=== PATIENT | female | born 1970 | race Caucasian/White ===

== ENCOUNTER 2019-08-12 06:26 | Emergency (ER) | payer BC, OTHER ==
[2019-08-12 06:49] VITALS: BP 151/95; PULSE 71; RESP 18; TEMP 98.1
--- NOTE | 2019-08-12 07:12 | ED ---
General Adult HPI - General Source: patient, RN notes reviewed, old records reviewed Mode of arrival: ambulatory Limitations: no limitations <Blanca Paige - Last Filed: 08/12/19 07:08> <Carolina Canchola - Last Filed: 08/15/19 07:46> - General Chief complaint: Wound/Laceration Stated complaint: Head Injury/IHS Time Seen by Provider: 08/12/19 06:53 - History of Present Illness Initial comments: Patient is a pleasant 49-year-old female who presents emergency department today with a scalp laceration over hitting her head on the corner of a cabinet. She reports that this happened today at work. Patient reports no loss of consciousness. She is on blood thinners. She denies any headache or neck pain. Patient reports that she has a 2 cm laceration that has already stopped bleeding at this time. She was sent in for further evaluation prior work. Patient states that she's had no dizziness, visual changes, peripheral paresthesias. (Blanca Paige) - Related Data Allergies Allergy/AdvReac Type Severity Reaction Status Date / Time Penicillins AdvReac Mild Unknown Verified 08/12/19 06:50 Review of Systems ROS Other: All systems not noted in ROS Statement are negative. <Blanca Paige - Last Filed: 08/12/19 07:08> ROS Other: All systems not noted in ROS Statement are negative. <Carolina Canchola - Last Filed: 08/15/19 07:46> ROS Statement: Those systems with pertinent positive or pertinent negative responses have been documented in the HPI. Past Medical History History of Any Multi-Drug Resistant Organisms: None Reported Past Surgical History: Tubal Ligation Past Psychological History: No Psychological Hx Reported Smoking Status: Current every day smoker Past Alcohol Use History: Occasional Past Drug Use History: None Reported <Blanca Paige - Last Filed: 08/12/19 07:08> General Exam Limitations: no limitations General appearance: alert, in no apparent distress Head exam: Present: atraumatic, normocephalic, normal inspection, other (Patient has a 2 cm laceration over the top of the scalp. The laceration is well approximated this time, bleeding controlled.) Eye exam: Present: normal appearance, PERRL, EOMI. Absent: scleral icterus, conjunctival injection, periorbital swelling ENT exam: Present: normal exam, mucous membranes moist Neck exam: Present: normal inspection. Absent: tenderness, meningismus, lymphadenopathy Respiratory exam: Present: normal lung sounds bilaterally Cardiovascular Exam: Present: regular rate, normal rhythm, normal heart sounds. Absent: systolic murmur, diastolic murmur, rubs, gallop, clicks GI/Abdominal exam: Present: soft, normal bowel sounds. Absent: distended, tenderness, guarding, rebound, rigid Back exam: Present: normal inspection Neurological exam: Present: alert, oriented X3, CN II-XII intact, normal gait Expanded Patient oriented to: Present: person, place, time Speech: Present: fluid speech Cranial nerves: EOM's Intact: Normal Cerebellar function: Finger to Nose: Normal Upper motor neuron: Pronator Drift: Normal Sensory exam: Upper Extremity Light Touch: Normal, Lower Extremity Light Touch: Normal Motor strength exam: RUE: 5, LUE: 5, RLE: 5, LLE: 5 Eye Response: (4) open spontaneously Motor Response: (6) obeys commands Verbal Response: (5) oriented Surendra Total: 15 Psychiatric exam: Present: normal affect, normal mood Skin exam: Present: warm <Blanca Paige - Last Filed: 08/12/19 07:08> Course Vital Signs 08/12/19 08/12/19 06:44 07:26 Temperature 98.1 F 98.1 F Pulse Rate 71 71 Respiratory 18 18 Rate Blood Pressure 151/95 151/95 O2 Sat by Pulse 100 100 Oximetry Procedures - Laceration Laceration #1 Size (cm): 2 Description: linear Depth: simple, single layer Pre-repair: wound explored, irrigated extensively Type of Sutures: other ([place]) Number of Sutures: 2 Technique: simple, interrupted Patient Tolerated Procedure: well, no complications <Blanca Paige - Last Filed: 08/12/19 07:08> Medical Decision Making <Blanca Paige - Last Filed: 08/12/19 07:08> <Carolina Canchola - Last Filed: 08/15/19 07:46> - Medical Decision Making This patient's a pleasant 49-year-old female presented today for a laceration over the top of the skull. She hit her head while at work. Patient's O2 sat meter laceration. Wound was already stopped bleeding at this time. Patient's wound was cleaned, and closed with 2 patrick. She has no neurological deficits denies any head injury. She is not on blood thinners and appears well. She denies headache. Discussed risk and benefit of CT Patient agrees to forego this at this time. Discussed Patient be monitored with a head injury. Discussed staple care. All questions were answered and return parameters were discussed. (Blanca Paige) I was available for consultation in the emergency department. The history and physical exam were done by the midlevel provider. I was consulted for this patients care. I reviewed the case with the midlevel provider and based on their presentation of the patient, I agree with the assessment, medical decision making and plan of care as documented. Chart was dictated using Me[employer] dictation software. Attempts were made to correct any dictation errors however some typographical errors may persist. (Carolina Canchola) Disposition Is patient prescribed a controlled substance at d/c from ED?: No Time of Disposition: 07:11 <Blanca Paige - Last Filed: 08/12/19 07:08> <Carolina Canchola - Last Filed: 08/15/19 07:46> Clinical Impression: Scalp laceration, Minor head injury without loss of consciousness Disposition: HOME SELF-CARE Condition: Good Instructions (If sedation given, give patient instructions): Head Injury (ED), Staple Care (ED) Additional Instructions: Please return to the emergency room in 7 days to have patrick removed. Please leave wound covered for the first 24-48 hours and then leave open to air after that time. Please use clean soap and water to clean the suture area to prevent scabbing over the top of your patrick. Please watch for any signs of infection which may include but not limited to increased pain, swelling, redness, fever or chills. Please return to the emergency room if any signs of infection do occur. Please return to the emergency room for any other concerns or complications. Referrals: None,Stated [Primary Care Provider] - 1-2 days
== END 2019-08-12 07:25 | disposition home or self-care (01) ==
LOC: EC 06:26
DX: S01.01XA Laceration without foreign body of scalp, initial encounter (principal); F17.200 Nicotine dependence, unspecified, uncomplicated; Z88.0 Allergy status to penicillin; W22.03XA Walked into furniture, initial encounter; Y92.69 Other specified industrial and construction area as the place of occurrence of the external cause; Y99.0 Civilian activity done for income or pay
CPT/HCPCS: 12001; 99283

== ENCOUNTER → 2020-08-09 | Outpatient (CLI) | payer OTHER | END | disposition home or self-care (01) | LOC: LABPAT 08:03 | PROVIDERS: ATTEND Orthopaedic Surgery | DX: Z01.812 Encounter for preprocedural laboratory examination (principal) | CPT/HCPCS: 87070 ==

== ENCOUNTER → 2020-08-14 | Outpatient (CLI) | payer OTHER ==
[2020-08-14 09:40] LABS: Appearance,Urine Cloudy (Clear); Bilirubin,Urine Negative (Negative); Blood,Urine Small (Negative); Color,Urine Yellow; Glucose,Urine (UA) Negative (Negative); Ketones,Urine Negative (Negative); Leukocyte Esterase,Urine Negative (Negative); Mucus,Urine Few /hpf; Nitrite,Urine Negative (Negative); Protein,Urine Trace (Negative); RBC,Urine 4 /hpf (0-5); Specific Gravity,Urine 1.022 (1.001-1.035); Squamous Epithelial Cell,Urine 8 /hpf (0-4); Urobilinogen,Urine <2.0 mg/dL (<2.0); WBC,Urine 2 /hpf (0-5)
== END | disposition home or self-care (01) ==
LOC: LABPAT 08:27
PROVIDERS: ATTEND Orthopaedic Surgery
DX: Z01.818 Encounter for other preprocedural examination (principal); M16.11 Unilateral primary osteoarthritis, right hip
CPT/HCPCS: 36415; 81001; 85730; 86850; 86900; 86901

== ENCOUNTER 2020-08-20 13:01 | Day surgery (SDC) | payer OTHER ==
[2020-08-13 10:51] VITALS: BMI 36.6
[2020-08-20] MEDS: LACTATED RINGERS 1,000 ML IV SCH ×3 (13:00→13:50)
[2020-08-20] MEDS: LIDOCAINE 1% (10MG/ML) FOR IV START INTRADERMA PRN ×2 (13:00→13:50)
[~2020-08-20 13:01] MED LIST: ACETAMINOPHEN TAB 500 MG TAB PO PRN; DEXAMETHASONE SOD PHOSPHATE 4 MG/ML 1 ML VIAL IV ONE; GABAPENTIN 300 MG CAP PO PRN; HYDROmorphone 0.2 MG/1 ML SYRINGE IVP PRN; HYDROmorphone 0.5 MG/0.5 ML SYRINGE IVP PRN; HYDROmorphone 1 MG/ML 1 ML SYRINGE IVP PRN; MELOXICAM 7.5 MG TAB PO PRN; MIDAZOLAM 2 MG/2 ML VIAL IV PRN; NALOXONE 0.4 MG/ML 1 ML VIAL IV PRN; ONDANSETRON 4 MG/2 ML VIAL IVP ONE; ONDANSETRON 4 MG/2 ML VIAL IVP PRN; ROPIVACAINE 246.25 MG, EPINEPHrine 0.5 MG, KETOROLAC 30 MG, cloNIDine HCL/PF 80 MCG, WA... MISCELLANE PRN; TRANEXAMIC ACID 1,000 MG in SODIUM CHLORIDE 0.9% 100 ML IVPB PRN
[2020-08-20] MEDS ORDERED: NEOSTIGMINE 1 MG/ML 10 ML VIAL ONE (14:45)
[2020-08-20] MEDS ORDERED: SUCCINYLCHOLINE CHLORIDE 100 MG/5 ML SYR IV ONE (14:45)
[2020-08-20] MEDS ORDERED: HYDROmorphone (PF) 1 MG/ML ONE (14:45)
[2020-08-20] MEDS ORDERED: TRANEXAMIC ACID 1,000 MG/10 ML VIAL ONE (14:45)
[2020-08-20] MEDS ORDERED: ROCURONIUM 10 MG/ML (5 ML VIAL) IV ONE (14:45)
[2020-08-20] MEDS ORDERED: HEPARIN SODIUM,PORCINE 10,000 UNIT/ML 1 ML VIAL ONE (14:45)
[2020-08-20] MEDS ORDERED: GLYCOPYRROLATE 0.2 MG/ML 2 ML VIAL ONE (14:45)
[2020-08-20] MEDS ORDERED: fentaNYL (PF) 50 MCG/ML 2 ML AMP ONE (14:45)
[2020-08-20] MEDS ORDERED: LIDOCAINE 1% INJ 10MG/ML (20 ML MDV) ONE (14:45)
[2020-08-20] MEDS ORDERED: MIDAZOLAM 2 MG/2 ML VIAL ONE (14:45)
[2020-08-20] MEDS ORDERED: SODIUM CHLORIDE 0.9% 100 ML BAG ONE (14:45)
[2020-08-20] MEDS ORDERED: PROPOFOL 10 MG/ML 20 ML VIAL IV ONE (14:45)
[2020-08-20] MEDS ORDERED: SODIUM CHLORIDE 0.9% IRRIG 1,000 ML BTL IRRIGATION ONE (14:45)
[2020-08-20] MEDS ORDERED: ceFAZolin 3,000 MG in SODIUM CHLORIDE 0.9% IRRIGATIO 3,000 ML IRRIGATION ONE (15:18)
--- NOTE | 2020-08-20 16:11 | P.OP ---
Date of Procedure: 08/20/20 Preoperative Diagnosis: Severe osteoarthritis right hip Postoperative Diagnosis: Severe osteoarthritis right hip Procedure(s) Performed: Right total hip arthroplasty with a direct anterior approach Implants: [employer] Polarstem standard size 1 [employer] R3, 3 hole hemispherical acetabular shell, 48 mm [employer] Reflection 6.5 mm cancellus screw, 20 mm 2 [employer] R3, XLPE 20 acetabular liner [employer] Oxinium femoral head 32 mm, -3 All components were press-fit. The articulation is Oxinium on polyethylene. Anesthesia: GETA Surgeon: Shaji Cummings Messenger Office #1: Bianca Nowak Estimated Blood Loss (ml): 200 (67 mL returned with Cell Saver) Pathology: other (Femoral head) Condition: stable Disposition: PACU Indications for Procedure: After failure of conservative treatment we discussed the surgical and nonsurgical treatment options at length. Patient wishes to proceed with a total hip arthroplasty with a direct anterior approach. Complications specific to this procedure were discussed at length, including but not limited to infection, leg length discrepancy, dislocation, nerve injury, and fracture. Covid-19 was also discussed at length with the patient, and they are aware of the current policies and procedures. The patient was given the option of delaying surgery, but they elect to proceed knowing these risks. Patient is aware of all these complications and informed consent was obtained Operative Findings: The operative findings are consistent with severe osteoarthritis of the right hip Description of Procedure: Patient was seen and evaluated in the preoperative area and the consent was reviewed. The operative site was marked with a skin marker. The patient was then brought to the operating room and given preoperative antibiotics intravenously. 1 g of Tranexamic acid was also given intravenously. A general anesthetic was administered by the anesthesia department. The patient was then placed on the Newell table with the bony prominences well-padded. The hip area was then prepped with a ChloraPrep solution and draped in the usual sterile fashion. A universal timeout was then performed, which confirmed the patient's name, surgical site, ALLERGIES, and procedure being performed on the consent. Next the incision site was located at 1 cm distal and 1 cm lateral to the anterior superior iliac spine. The skin and subcutaneous tissues were sharply incised. Incision was carefully dissected down to the fascia overlying the tensor fascia faina muscle. This fascia was then incised in line with the incision. Care was taken to stay laterally in order to avoid injuring the lateral femoral cutaneous nerve. Next, using blunt finger dissection, the tensor fascia faina muscle was dissected off its investing fascia. The muscle was then carefully retracted laterally with a cobra retractor over the lateral neck of the femur. Next, the circumflex vessels were identified and cauterized using the AquaMantis device. The anterior hip capsule was then exposed. The capsule was then opened and an inverted T fashion. Cobra retractors were then placed intracapsularly. The retractors were maintained intracapsular throughout the procedure. The proximal femur was then visualized. A small amount of traction was placed on the leg. The femoral neck was then osteotomized appropriate level above the lesser trochanter. A small wedge of bone was then removed from the remaining femoral head. Next, using a corkscrew the femoral head was removed from the acetabulum. On gross visual inspection, the femoral head had complete loss of articular cartilage and multiple periarticular osteophytes. The femoral head was then measured. Attention was then turned to the acetabulum. The acetabulum was exposed and any remaining labrum was excised. Sequential reaming of the acetabulum was performed using fluoroscopic guidance until there was a good bed of bleeding cancellus bone. When the appropriate size was reached, a trial was then placed. The position and fit of the trial was checked with fluoroscopy. The trial was then removed. Then, using fluoroscopic guidance, the final implant was impacted at 20 of anteversion and 40 of abduction, and fully seated in the acetabulum. 2 screws were then placed in the acetabulum. Again fluoroscopy was used to check position of the screws. Next, the liner was then impacted, with a 20 elevated liner located in the anterior superior quadrant. Component locking was confirmed. Attention was then directed to the femur. With the aid of the Newell table, the femur was externally rotated to approximately 130, extended, and adducted under the opposite leg. A side hook was then placed under the proximal femur, and the side hook elevator was used to elevate the proximal femur while releasing the capsule. Retractors were then placed. A capsular release was performed, as well as a release of the conjoined tendon, which afforded excellent visualization of the proximal femur. Next, a box osteotome was used to lateralize the proximal femur. A handle maker was then used to locate the femoral canal. Sequential broaching was then performed with appropriate size which afforded excellent fixation in the proximal femur. A trial was then placed with appropriate head and neck, and the hip was gently reduced with the aid of the Newell table. Fluoroscopy was then used to check position of the components, as well as to ensure equal leg lengths. The hip was then gently dislocated and the trials were then removed. Final implants were then impacted and the hip was again reduced. Final fluoroscopic x-rays confirmed that the components were in anatomic position, as well as equal leg lengths. The hip was also taken through range of motion, and found to be stable. The hip was then copiously irrigated with antibiotic solution with pulsatile lavage. The hip was then irrigated with Irrisept solution. The soft tissues were then injected with a ropivacaine solution, which consisted of 246.25 mg of ropivacaine, 0.5 mg of epinephrine, 30 mg of Toradol, 80 g of clonidine, and 48.45 mL of sterile water, for a total of 100 mL of fluid injected. A second dose of 1 g of Tranexamic acid was also given intravenously. Any blood collected by Cell Saver was then returned to the patient at this time. The fascia was then closed with 2-0 strata fix suture. The subcutaneous tissue was closed with 3-0 Vicryl. The subcuticular tissue was closed with 3-0 strata fix suture. The skin was then closed with Exofin skin glue. After the glue and dried, and Optifoam silver impregnated dressing was applied. The patient was then transferred to the recovery room in stable condition. The radiology assistant TEA Patton was required due to the complexity of surgery, and the need for skilled surgical oncologist for positioning, draping, exposure, retraction, and closure of the wound.
[2020-08-20] MEDS ORDERED: LACTATED RINGERS 1,000 ML IV ONE (16:23)
[2020-08-20] MEDS ORDERED: HYDROcodone/APAP 7.5-325MG 1 EACH TAB PO PRN ×2 (16:37)
[2020-08-20 16:48] VITALS: RESP 16
--- NOTE | 2020-08-20 17:09 | XR ---
EXAMINATION TYPE: XR Hip Limited RT DATE OF EXAM: 08/20/2020 COMPARISON: NONE HISTORY: Postop TECHNIQUE: Single view FINDINGS: There is right hip prosthesis. Components are in anatomic position. Sacroiliac joint is int act. IMPRESSION: Negative right hip exam.
[2020-08-20] MEDS: HYDROmorphone 0.5 MG/0.5 ML SYRINGE IVP PRN ×2 (17:20→17:25)
[2020-08-20] MEDS ORDERED: KETOROLAC 15 MG/ML 1 ML VIAL IVP ONE (17:24)
--- NOTE | 2020-08-20 17:49 | XR ---
Fluoroscopy HISTORY: Anterior hip replacement 52 seconds fluoroscopy time supplied to the referring clinician. 2 intraoperative C-arm images docum ent the procedure. See dictated report from orthopedic surgery.
[2020-08-20] MEDS: SODIUM CHLORIDE 0.9% 1,000 ML IV SCH (18:00)
[2020-08-20] MEDS: ASPIRIN 325 MG TAB PO SCH (21:28)
[2020-08-21] MEDS: SODIUM CHLORIDE 0.9% 1,000 ML IV SCH ×2 (04:37→07:28)
[2020-08-21] MEDS: LACTATED RINGERS 1,000 ML IV SCH (05:51)
[2020-08-21] MEDS: ASPIRIN 325 MG TAB PO SCH (07:34)
[2020-08-21 07:56] VITALS: BP 99/61; PULSE 65; TEMP 98.2
--- NOTE | 2020-08-21 08:50 | P.DS ---
Providers Expected date of discharge: 08/21/20 Attending physician: Shaji Cummings Primary care physician: Svetlana Meadows - Discharge Diagnosis(es) (1) Osteoarthritis of right hip Current Visit: Yes Status: Acute (2) Status post total hip replacement, right Current Visit: Yes Status: Acute Hospital Course: This is a 50-year-old female with known history of degenerative arthritis of the right hip. The patient presented for evaluation as an outpatient. After discussion and consideration patient elects to proceed with total hip arthroplasty. The patient is seen preoperatively by Dr. Cummings and medically cleared for surgery by their primary care physician. Patient is admitted to [facility] on 08/20/2020 for total hip arthroplasty. The procedure is performed without complication or sequelae. The patient is doing well postoperatively. Labs and vital signs are stable on day of discharge. On day of discharge patient's hip incision is healing well. There is minimal erythema. There is no drainage noted at this time. There is minimal soft tissue swelling to the hip and thigh. Patient has full foot and ankle motion without difficulty or pain. Calf is soft and nontender to palpation. Neurovascular status to the right lower extremity is intact. Patient is discha rged home in good condition. Opioid start talking form is reviewed and signed. Please see med rec for accurate list of home medications. Plan - Discharge Summary Discharge Rx Participant: Yes New Discharge Prescriptions: New Gabapentin 300 mg PO BID 5 Days #10 cap HYDROcodone/APAP 7.5-325MG [[place] 7.5-325] 1 - 2 tab PO Q6H PRN #32 tab PRN Reason: Pain Aspirin 325 mg PO BID #60 tab Celecoxib [CeleBREX] 200 mg PO DAILY 5 Days #5 capsule Sennosides [Senokot] 2 tab PO DAILY PRN #60 tablet PRN Reason: Constipation Ondansetron Odt [Zofran Odt] 1 tab PO Q8HR PRN #10 tab PRN Reason: Nausea No Action Cholecalciferol [Vitamin D3 (25 Mcg = 1000 Iu)] 25 mcg PO DAILY Acetaminophen [Tylenol] 325 mg PO Q4H PRN PRN Reason: Pain Discharge Medication List Acetaminophen [Tylenol] 325 mg PO Q4H PRN 08/13/20 [History] Cholecalciferol [Vitamin D3 (25 Mcg = 1000 Iu)] 25 mcg PO DAILY 08/13/20 [History] Aspirin 325 mg PO BID #60 tab 08/21/20 [Rx] Celecoxib [CeleBREX] 200 mg PO DAILY 5 Days #5 capsule 08/21/20 [Rx] Gabapentin 300 mg PO BID 5 Days #10 cap 08/21/20 [Rx] HYDROcodone/APAP 7.5-325MG [[place] 7.5-325] 1 - 2 tab PO Q6H PRN #32 tab 08/21/20 [Rx] Ondansetron Odt [Zofran Odt] 1 tab PO Q8HR PRN #10 tab 08/21/20 [Rx] Sennosides [Senokot] 2 tab PO DAILY PRN #60 tablet 08/21/20 [Rx] Follow up Appointment(s)/Referral(s): [facility], [NON-STAFF] - ([facility] will call you to set up your first visit. Your first visit will be on 08/21/20.) Svetlana Meadows MD [Primary Care Provider] - 08/27/20 3:00 pm Shaji Cummings DO [Doctor of Osteopathic Medicine] - 09/03/20 2:00 pm () Patient Instructions/Handouts: Anterior Hip Replacement (DC) Activity/Diet/Wound Care/Special Instructions: Weightbearing as tolerated with walker Leave dressing intact. Dressing may be removed by home care nurse in 10 days. May shower with dressing on. Please take aspirin 325 mg twice daily for 30 days to prevent blood clots. Please wear compression stockings during the day until follow-up appointment to help prevent blood clots. May remove at night. Follow-up with [facility] in 2 weeks, please call with any questions or concerns [phone] Discharge Disposition: HOME WITH HOME HEALTH SERVICES
[2020-08-21 09:16] LABS: Basophils # (A) 0.01 X 10*3/uL (0.00-0.10); Basophils % (A) 0.1 %; Eosinophils # (A) 0 X 10*3/uL (0.04-0.35); Eosinophils % (A) 0 %; HCT 31.6 % (37.2-46.3); HGB 10.2 g/dL (12.0-15.0); Lymphocytes # (A) 1.78 X 10*3/uL (0.90-5.00); Lymphocytes % (A) 13.3 %; MCH 29.1 pg (27.0-32.0); MCHC 32.3 g/dL (32.0-37.0); MCV 90.3 fL (80.0-97.0); Mean Platelet Volume 10.3 fL (9.5-12.2); Monocytes # (A) 0.94 X 10*3/uL (0.20-1.00); Neutrophils # (A) 10.62 X 10*3/uL (1.80-7.70); Neutrophils % (A) 79.2 %; Platelet Count 293 X 10*3/uL (140-440); RDW 12.8 % (11.5-14.5)
== END 2020-08-21 12:55 | disposition home health service (06) ==
LOC: OR 13:01 → 4SSUR 16:28 → OR 08-21 12:55
PROVIDERS: ATTEND Orthopaedic Surgery
DX: M16.11 Unilateral primary osteoarthritis, right hip (principal); Z97.3 Presence of spectacles and contact lenses; Z98.51 Tubal ligation status; J45.909 Unspecified asthma, uncomplicated; Z91.048 Other nonmedicinal substance allergy status; Z87.891 Personal history of nicotine dependence; Z97.2 Presence of dental prosthetic device (complete) (partial); Z83.3 Family history of diabetes mellitus; Z82.49 Family history of ischemic heart disease and other diseases of the circulatory system; Z79.899 Other long term (current) drug therapy
CPT/HCPCS: 73501; 81025; 85025; 86850; 86891; 86900; 86901; 88300

== ENCOUNTER → 2021-04-30 | Outpatient (CLI) | payer OTHER ==
--- NOTE | 2021-04-30 13:47 | US ---
EXAMINATION TYPE: US venous doppler duplex LE DATE OF EXAM: 04/30/2021 1:00 PM COMPARISON: NONE CLINICAL HISTORY: I83.893 VARICOSE VEINS ELLIE LEGS WITH EDEMA. Bilateral leg swelling SIDE PERFORMED: Bilateral TECHNIQUE: The lower extremity deep venous system is examined utilizing real time linear array sonog aaliyah with graded compression, doppler sonography and color-flow sonography. VESSELS IMAGED: Common Femoral Vein Deep Femoral Vein Greater Saphenous Vein * Femoral Vein Popliteal Vein Small Saphenous Vein * Proximal Calf Veins (* superficial vessels) Right Leg: Appears negative for DVT Left Leg: Appears negative for DVT Grayscale, color doppler, spectral doppler imaging performed of the deep veins of the bilateral lower extremities. There is normal flow, compressibility, vascular waveforms. IMPRESSION: No ultrasound evidence for acute DVT in either lower extremity.
--- NOTE | 2021-05-02 11:32 | MM ---
Reason for exam: screening (asymptomatic). Last mammogram was performed 5 years and 5 months ago. History: Patient is postmenopausal and is nulliparous. Family history of breast cancer in paternal aunt and breast cancer in maternal grandmother. Physical Findings: A clinical breast exam by your physician is recommended on an annual basis and results should be correlated with mammographic findings. MG Screening Mammo w CAD Bilateral CC and MLO view(s) were taken. Prior study comparison: December 13, 2015, bilateral MG screening mammo w CAD. February 28, 2013, bilateral digital screening mammo w/CAD. There are scattered fibroglandular densities. No significant changes when compared with prior studies. ASSESSMENT: Negative, BI-RAD 1 RECOMMENDATION: Routine screening mammogram of both breasts in 1 year.
== END | disposition home or self-care (01) ==
LOC: RADUSWWP 12:15
PROVIDERS: ATTEND Family Medicine
DX: Z12.31 Encounter for screening mammogram for malignant neoplasm of breast (principal); I83.893 Varicose veins of bilateral lower extremities with other complications
CPT/HCPCS: 77067; 93922; 93970

== ENCOUNTER → 2022-05-06 | Outpatient (CLI) | payer OTHER ==
[2022-05-06 08:37] VITALS: BP 121/77; PULSE 76; RESP 17; TEMP 97.5
--- NOTE | 2022-05-06 09:22 | P.HPOB ---
History of Present Illness H&P Date: 05/06/22 Chief Complaint: The patient is here for her routine gynecologic exam. This is a 52-year-old with an LMP of 2019. The patient is here to establish with this office. It is been about one half years since her last pelvic exam. She has been experiencing some hot flashes, but they are tolerable. She has used Black cohosh which seems to help with hot flash symptoms. She is otherwise without gynecologic complaints and denies any postmenopausal bleeding. Review of Systems The patient's weight has been stable over the last year. She did lose about 60 pounds around the time of her divorce in 2000. She denies respiratory, cardiac, or G.I. problems. Past Medical History Past Medical History: Osteoarthritis (OA) Additional Past Medical History / Comment(s): She has had hip and knee problems and has had replacement surgery for these. 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 History of Any Multi-Drug Resistant Organisms: None Reported Past Surgical History: Orthopedic Surgery Additional Past Surgical History / Comment(s): R HIP replacement 2020, R KNEE replacement 2021. Unilateral salpingectomy for ectopic . Past Anesthesia/Blood Transfusion Reactions: No Reported Reaction Past Psychological History: No Psychological Hx Reported (She denies current depression.) Smoking Status: Former smoker Past Alcohol Use History: Rare (1 or 2 per year) Additional Past Alcohol Use History / Comment(s): Quit smoking in July 2020. Past Drug Use History: None Reported Additional History: She is and has been with her boyfriend since 2012. They live together. 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 - Past Family History Mother Family Medical History: Hypertension Additional Family Medical History / Comment(s): Maternal grandmother had breast cancer. Father Family Medical History: Diabetes Mellitus, Hypertension Additional Family Medical History / Comment(s): Paternal aunt had breast cancer. Medications and Allergies Home Medications Medication Instructions Recorded Confirmed Type Acetaminophen [Tylenol] 325 mg PO Q4H PRN 08/13/20 05/06/22 History Aspirin 325 mg PO BID #60 tab 08/21/20 05/06/22 Rx Allergies Allergy/AdvReac Type Severity Reaction Status Date / Time Penicillins AdvReac Mild Unknown Verified 05/06/22 08:32 Exam Vital Signs Temp Pulse Resp BP Pulse Ox 05/06/22 08:33 97.5 F L 76 17 121/77 97 Intake and Output 05/05/22 05/06/22 05/06/22 22:59 06:59 14:59 Other: Weight 101.151 kg Height 5 feet 2 inches, weight 223 pounds, BMI 40.8. This is a well-developed well-nourished heavyset white female who is alert and oriented times 3 in no acute distress. HEENT: Within normal limits. NECK: Supple without mass or thyromegaly. CHEST AND LUNGS: Clear to auscultation. HEART: Regular rate and rhythm. BREASTS: Are without mass or discharge. AXILLARY EXAM: Negative for adenopathy. BACK: Negative for CVA tenderness. ABDOMEN: Soft, nontender, without palpable masses. PELVIC EXAM: Normal external genitalia with minimal atrophy. Cervix and vagina appear normal with minimal atrophy. There is no unusual discharge. There is no evidence of prolapse. The uterus is midposition, nongravid size and nontender. There are no palpable adnexal masses or tenderness. RECTAL EXAM: Rectovaginal exam is negative for mass or tenderness and is negative for occult blood. EXTREMITIES: Nontender. IMPRESSION: 1. 52-year-old menopausal female with normal gynecologic exam. 2. Mild vasomotor symptoms associated with the menopausal change. PLAN: 1. Pap smear cotest was performed. 2. Self breast awareness was discussed with the patient. We have also discussed symptoms associated with inflammatory breast cancer. 3. Screening mammogram is scheduled for tomorrow, 05/07/2022. The order slip was given to the patient for this. 4. Osteoporosis prevention was discussed. I have stressed the importance of adequate calcium, vitamin D and regular exercise. Recommended amounts of calcium and vitamin D were also discussed. 5. She has completed her Covid vaccination series and has received a booster. 6. She has discussed getting a colonoscopy with Dr. Madison. She will have this arranged through Dr. Madison's office. 7. She was advised to return in one year for her annual well woman exam.
== END | disposition home or self-care (01) ==
LOC: WWCWWP 08:24
PROVIDERS: ATTEND Obstetrics & Gynecology
DX: Z53.9 Procedure and treatment not carried out, unspecified reason (principal)

== ENCOUNTER → 2022-05-07 | Outpatient (CLI) | payer OTHER ==
--- NOTE | 2022-05-08 18:28 | MM ---
Reason for Exam: Screening (asymptomatic). Last screening mammogram was performed 12 month(s) ago. Patient History: Menarche at age 10. Patient has no children. Postmenopausal. Maternal grandmother had breast cancer. Paternal aunt had breast cancer. Risk Values: Yi 5 year model risk: 1.3%. NCI Lifetime model risk: 9.3%. Prior Study Comparison: 02/28/2013 Bilateral Screening Mammogram, [facility]. 12/13/2015 Bilateral Screening Mammogram, [facility]. 04/30/2021 Bilateral Screening Mammogram, [facility]. Tissue Density: There are scattered fibroglandular densities. Findings: Analyzed By CAD. A few scattered benign round and punctate calcifications are noted on both sides. There is no suspicious group of microcalcifications or new suspicious mass in either breast. Overall Assessment: Benign, BI-RAD 2 Management: Screening Mammogram of both breasts in 1 year. 1. Patient should continue monthly self breast exams. 2. A clinical breast exam by your physician is recommended on an annual basis. 3. This exam should not preclude additional follow-up of suspicious palpable abnormalities. Electronically signed and approved by: Orquidea Lewis M.D. Radiologist
== END | disposition home or self-care (01) ==
LOC: RADMAMWWP 08:07
PROVIDERS: ATTEND Family Medicine
DX: Z12.31 Encounter for screening mammogram for malignant neoplasm of breast (principal); Z78.0 Asymptomatic menopausal state; Z80.3 Family history of malignant neoplasm of breast
CPT/HCPCS: 77067

== ENCOUNTER → 2022-05-16 | Outpatient (CLI) | payer OTHER ==
--- NOTE | 2022-05-18 22:49 | XR ---
EXAMINATION TYPE: XR lumbosacral spine min 4V DATE OF EXAM: 05/16/2022 CLINICAL HISTORY: Internal arrangement. Sciatica. TECHNIQUE: Frontal, lateral, and oblique images of the lumbar spine are obtained. COMPARISON: None FINDINGS: There are 5 lumbar type vertebral bodies identified. There is levoconvex scoliosis centere d at L3 level. There is grade 1 retrolisthesis L5 on S1. There is grade 1 anterolisthesis L4 on L5. V ertebral body heights are maintained. [id number] multilevel anterior and lateral spurring. Mode rate disc space narrowing L5-S1 level. Oblique images appear within normal limits. Metallic hardware from right hip surgery is partially imaged. IMPRESSION: No acute fracture or dislocation is seen in the lumbar spine.
--- NOTE | 2022-05-18 22:51 | XR ---
EXAMINATION TYPE: XR knee complete bilateral DATE OF EXAM: 05/16/2022 CLINICAL HISTORY: Internal derangement. Sciatica. TECHNIQUE: Three views of the bilateral knees are obtained. COMPARISON: None. FINDINGS: There is no acute fracture/dislocation evident in either knee. Metallic prosthesis right k nee is satisfactory in position. Left knee shows moderate to severe narrowing patellofemoral compartm ent and moderate narrowing with mild to moderate peripheral spurring medial tibiofemoral compartment. Overlying soft tissue appears unremarkable bilaterally. IMPRESSION: As above.
== END | disposition home or self-care (01) ==
LOC: RADXRMAIN 15:30
PROVIDERS: ATTEND Family Medicine
DX: M23.90 Unspecified internal derangement of unspecified knee (principal); M54.30 Sciatica, unspecified side
CPT/HCPCS: 72110

== ENCOUNTER 2022-11-26 10:15 | Day surgery (SDC) | payer OTHER ==
[2022-11-25 12:03] VITALS: BMI 40.2
--- NOTE | 2022-11-26 08:36 | P.GSHP ---
History of Present Illness H&P Date: 11/26/22 CHIEF COMPLAINT: Colon screen HISTORY OF PRESENT ILLNESS: The patient is a 52-year-old female who presents for colon screen. Lower endoscopy was offered for further evaluation and management. PAST MEDICAL HISTORY: Please see list. PAST SURGICAL HISTORY: Please see list. MEDICATIONS: Please see list. ALLERGIES: Please see list. SOCIAL HISTORY: No illicit drug use FAMILY HISTORY: No reports of Crohn disease or ulcerative colitis. REVIEW OF ORGAN SYSTEMS: CONSTITUTIONAL: No reports of fevers or chills. PHYSICAL EXAM: VITAL SIGNS: Stable GENERAL: Well-developed pleasant in no acute distress. HEENT: No scleral icterus. Extraocular movements grossly intact. Moist buccal mucosa. NECK: Supple without lymphadenopathy. CHEST: Unlabored respirations. Equal bilateral excursions. CARDIOVASCULAR: Regular rate and rhythm. Distal 2+ pulses. ABDOMEN: Soft, nontender, nondistended. MUSCULOSKELETAL: No clubbing, cyanosis, or edema. ASSESSMENT: 1. Colon screen. PLAN: 1. Recommend proceeding with a lower endoscopy Past Medical History Past Medical History: Osteoarthritis (OA) Additional Past Medical History / Comment(s): steroid October 2022, She has had hip and knee problems and has had replacement surgery for these. 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 History of Any Multi-Drug Resistant Organisms: None Reported Past Surgical History: Orthopedic Surgery Additional Past Surgical History / Comment(s): R HIP replacement 2020, R KNEE replacement 2021. Unilateral salpingectomy for ectopic . Past Anesthesia/Blood Transfusion Reactions: No Reported Reaction Additional Past Anesthesia/Blood Transfusion Reaction / Comment(s): no hx blood transfusion. takes awhile to wake up with anesthesia Smoking Status: Former smoker - Past Family History Mother Family Medical History: Hypertension Additional Family Medical History / Comment(s): Maternal grandmother had breast cancer. Father Family Medical History: Diabetes Mellitus, Hypertension Additional Family Medical History / Comment(s): Paternal aunt had breast cancer. Medications and Allergies Home Medications Medication Instructions Recorded Confirmed Type No Known Home Medications 11/25/22 11/25/22 History Allergies Allergy/AdvReac Type Severity Reaction Status Date / Time Penicillins AdvReac Mild headaches Verified 11/25/22 11:57
[~2022-11-26 10:15] MED LIST changes: -ACETAMINOPHEN TAB 500 MG TAB PO PRN; -DEXAMETHASONE SOD PHOSPHATE 4 MG/ML 1 ML VIAL IV ONE; -GABAPENTIN 300 MG CAP PO PRN; -HYDROmorphone 0.2 MG/1 ML SYRINGE IVP PRN; -HYDROmorphone 0.5 MG/0.5 ML SYRINGE IVP PRN; -HYDROmorphone 1 MG/ML 1 ML SYRINGE IVP PRN; +LACTATED RINGERS 1,000 ML IV SCH; +LIDOCAINE 1% (10MG/ML) FOR IV START INTRADERMA PRN; -MELOXICAM 7.5 MG TAB PO PRN; -MIDAZOLAM 2 MG/2 ML VIAL IV PRN; -NALOXONE 0.4 MG/ML 1 ML VIAL IV PRN; -ONDANSETRON 4 MG/2 ML VIAL IVP ONE; -ROPIVACAINE 246.25 MG, EPINEPHrine 0.5 MG, KETOROLAC 30 MG, cloNIDine HCL/PF 80 MCG, WA... MISCELLANE PRN; -TRANEXAMIC ACID 1,000 MG in SODIUM CHLORIDE 0.9% 100 ML IVPB PRN
[2022-11-26] MEDS ORDERED: LACTATED RINGERS 1,000 ML IV ONE (10:25)
[2022-11-26 10:48] LABS: Glucose,Whole Blood 97 mg/dL (70-110)
[2022-11-26 10:49] VITALS: TEMP 99.1
[2022-11-26] MEDS ORDERED: PROPOFOL 10 MG/ML 20 ML VIAL IV ONE (10:50)
[2022-11-26] MEDS ORDERED: LIDOCAINE 2% INJ 20 MG/ML (2 ML VIAL) ONE (10:50)
--- NOTE | 2022-11-26 11:22 | P.PCN ---
Date of Procedure: 11/26/22 Description of Procedure: PREOPERATIVE DIAGNOSIS: Colonoscopy screening. POSTOPERATIVE DIAGNOSIS: Colonoscopy screening. Severe sigmoid diverticulosis OPERATION: Colonoscopy to the cecum, ileocecal valve and appendiceal orifice. SURGEON: Carolyn Segundo MD. ANESTHESIA: MAC. INDICATIONS: The patient is a 52-year-old female who presents for first colonoscopy screening. Benefits and risks were described and informed consent was obtained. DESCRIPTION OF PROCEDURE: The patient had undergone Sutab prep. The patient had been brought into the operating room and laid in the left lateral decubitus position. After adequate intravenous sedation, the rectum was examined with 2% lidocaine jelly. No ext ernal hemorrhoids were encountered. The rectal tone was within normal limits. No lesions were palpated in the rectal vault. An Olympus colonoscope was advanced until the cecum, ileocecal valve and appendiceal orifice were clearly viewed. The prep was excellent. Severe sigmoid diverticulosis was encountered. No colonic polyps were found. No evidence of focal colitis was found. Retroflexion of the scope demonstrated grade 1 internal hemorrhoids without active bleeding or inflammation. The colon was desufflated. The patient had tolerated the procedure well. Withdrawal time was over 6 minutes. FINDINGS: Aronchick preparation quality scale (1-5) Internal hemorrhoids, grade 1 No external prolapsed hemorrhoids. No arteriovenous malformations. Severe sigmoid diverticulosis Highly redundant sigmoid colon No adenomatous polyps. No focal colitis. RECOMMENDATIONS: Lower endoscopy 10 , 2032 Plan - Discharge Summary Discharge Rx Participant: No New Discharge Prescriptions: Continue No Known Home Medications Discharge Medication List No Known Home Medications 11/25/22 [History] Follow up Appointment(s)/Referral(s): Carolyn Segundo MD [STAFF PHYSICIAN] - As Needed Patient Instructions/Handouts: Diverticulosis Diet (GEN) Activity/Diet/Wound Care/Special Instructions: Repeat colonoscopy 10 years, 2032 Discharge Disposition: HOME SELF-CARE
[2022-11-26 12:03] VITALS: BP 141/77; PULSE 72; RESP 20
== END 2022-11-26 12:30 | disposition home or self-care (01) ==
LOC: ORWHC2ENDO 10:15
PROVIDERS: ATTEND Surgery Plastic and Reconstructive Surgery
DX: Z12.11 Encounter for screening for malignant neoplasm of colon (principal); K57.30 Diverticulosis of large intestine without perforation or abscess without bleeding; K64.0 First degree hemorrhoids; M19.90 Unspecified osteoarthritis, unspecified site; Z98.890 Other specified postprocedural states; Z87.59 Personal history of other complications of pregnancy, childbirth and the puerperium; Z87.891 Personal history of nicotine dependence; Z82.49 Family history of ischemic heart disease and other diseases of the circulatory system; Z80.3 Family history of malignant neoplasm of breast; Z83.3 Family history of diabetes mellitus; Z88.0 Allergy status to penicillin
CPT/HCPCS: 45378; J2704; J2001

== ENCOUNTER 2023-01-21 23:03 | Emergency (ER) | payer OTHER ==
[2023-01-21 23:35] VITALS: TEMP 98.1
[2023-01-22] MEDS ORDERED: KETOROLAC 15 MG/ML 1 ML VIAL IM STA (01:02)
[2023-01-22] MEDS ORDERED: ORPHENADRINE 30 MG/ML 2 ML VIAL IM STA (01:02)
[2023-01-22] MEDS ORDERED: DEXAMETHASONE SOD PHOSPHATE 10 MG/ML 1 ML VIAL IM STA (01:02)
--- NOTE | 2023-01-22 01:12 | ED ---
Back Pain HPI - General Chief Complaint: Back Pain/Injury Stated Complaint: Pain in legs Time Seen by Provider: 01/22/23 00:48 Source: patient Limitations: no limitations - History of Present Illness Initial Comments: 53-year-old female presenting with chief complaint of lower back pain that radiates down the right leg. States that this has been ongoing for a few days. Pain increases when she stands or walks. She has history of low back pain and has an MRI scheduled for Thursday. She has been taking Motrin and Tylenol at home. No loss of bowel or bladder control or saddle paresthesia. No weakness, numbness, tingling. - Related Data Previous Rx's Medication Instructions Recorded Cyclobenzaprine [Flexeril] 10 mg PO TID PRN #20 tab 01/22/23 Allergies Allergy/AdvReac Type Severity Reaction Status Date / Time Penicillins AdvReac Mild headaches Verified 01/21/23 23:32 Review of Systems ROS Statement: Those systems with pertinent positive or pertinent negative responses have been documented in the HPI. ROS Other: All systems not noted in ROS Statement are negative. Past Medical History Past Medical History: Osteoarthritis (OA) Additional Past Medical History / Comment(s): steroid October 2022, She has had hip and knee problems and has had replacement surgery for these. 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 History of Any Multi-Drug Resistant Organisms: None Reported Past Surgical History: Orthopedic Surgery Additional Past Surgical History / Comment(s): R HIP replacement 2020, R KNEE replacement 2021. Unilateral salpingectomy for ectopic . Past Anesthesia/Blood Transfusion Reactions: No Reported Reaction Additional Past Anesthesia/Blood Transfusion Reaction / Comment(s): no hx blood transfusion. takes awhile to wake up with anesthesia Past Psychological History: No Psychological Hx Reported Smoking Status: Former smoker Past Alcohol Use History: None Reported Past Drug Use History: None Reported - Past Family History Mother Family Medical History: Hypertension Additional Family Medical History / Comment(s): Maternal grandmother had breast cancer. Father Family Medical History: Diabetes Mellitus, Hypertension Additional Family Medical History / Comment(s): Paternal aunt had breast cancer. General Exam Limitations: no limitations General appearance: alert, in no apparent distress Head exam: Present: atraumatic, normocephalic, normal inspection Eye exam: Present: normal appearance, EOMI Neck exam: Present: normal inspection, full ROM Respiratory exam: Present: normal lung sounds bilaterally. Absent: respiratory distress, wheezes, rales, rhonchi, stridor Cardiovascular Exam: Present: regular rate, normal rhythm, normal heart sounds. Absent: systolic murmur, diastolic murmur, rubs, gallop, clicks Extremities exam: Present: normal inspection, full ROM, normal capillary refill Back exam: Present: normal inspection Neurological exam: Present: alert, oriented X3, CN II-XII intact Psychiatric exam: Present: normal affect, normal mood Skin exam: Present: warm, dry, intact, normal color. Absent: rash Course Vital Signs 01/21/23 23:32 Temperature 98.1 F Pulse Rate 68 Respiratory 18 Rate Blood Pressure 136/67 O2 Sat by Pulse 98 Oximetry Medical Decision Making - Medical Decision Making Was pt. sent in by a medical professional or institution (TEA Garcia, RAMP FLIGHT ATTENDANT, urgent care, hospital, or fpc...) When possible be specific @ -No Did you speak to anyone other than the patient for history (EMS, parent, family, police, friend...)? What history was obtained from this source @ -No Did you review nursing and triage notes (agree or disagree)? Why? @ -I reviewed and agree with nursing and triage notes Were old charts reviewed (outside hosp., previous admission, EMS record, old EKG, old radiological studies, urgent care reports/EKG's, fpc records)? Report findings @ -No old charts were reviewed Differential Diagnosis (chest pain, altered mental status, abdominal pain women, abdominal pain men, vaginal bleeding, weakness, fever, dyspnea, syncope, headache, dizziness, GI bleed, back pain, seizure, CVA, palpatations, mental health, musculoskeletal)? @ - MDM Differential Back Pain: Strain, zoster, cauda equina syndrome, epidural abscess, vertebral osteomyelitis, discitis, fracture, subluxation, disc herniation, DJD, spinal stenosis, dissection, AAA, pancreatitis, peptic ulcer disease, pyelonephritis, kidney stone this is not meant to be an all-inclusive list. EKG interpreted by me (3pts min.). @ -As above X-rays interpreted by me (1pt min.). @ -None done CT interpreted by me (1pt min.). @ -None done U/S interpreted by me (1pt. min.). @ -None done What testing was considered but not performed or refused? (CT, X-rays, U/S, labs)? Why? @ -None What meds were considered but not given or refused? Why? @ -None Did you discuss the management of the patient with other professionals (professionals i.e. , PA, RAMP FLIGHT ATTENDANT, lab, RT, psych nurse, social security assessor, computer technologist, teacher, lodge officer, wrapper caser)? Give summary @ -No Was smoking cessation discussed for >3mins.? @ -No Was critical care preformed (if so, how long)? @ -No Were there social determinants of health that impacted care today? How? (Homelessness, low income, unemployed, alcoholism, drug addiction, transportation, low edu. Level, literacy, decrease access to med. care, [facility], rehab)? @ -No Was there de-escalation of care discussed even if they declined (Discuss DNR or withdrawal of care, Hospice)? DNR status @ -No What co-morbidities impacted this encounter? (DM, HTN, Smoking, COPD, CAD, Cancer, CVA, ARF, Chemo, Hep., AIDS, mental health diagnosis, sleep apnea, morbid obesity)? @ -None Was patient admitted / discharged? Hospital course, mention meds given and route, prescriptions, significant lab abnormalities, going to OR and other pertinent info. @ -53-year-old female presenting with chief complaint of low back pain that radiates down the right leg. No red flag symptoms. Patient is treated with Toradol, Decadron, Norflex, and lidocaine patches. She is provided with a prescription for cyclobenzaprine and educated on side effects. She has an MRI scheduled for Thursday. Follow-up with PCP. Report back to ER with any new or worsening symptoms. Discussed return parameters and answered all questions. Patient conveyed verbal understanding and agreed to the plan. I discussed this case in detail with my attending Dr. Canchola Undiagnosed new problem with uncertain prognosis? @ -No Drug Therapy requiring intensive monitoring for toxicity (Heparin, Nitro, Insulin, Cardizem)? @ -No Were any procedures done? @ -No Diagnosis/symptom? @ -Sciatica Acute, or Chronic, or Acute on Chronic? @ -Acute Uncomplicated (without systemic symptoms) or Complicated (systemic symptoms)? @ -Uncomplicated Side effects of treatment? @ -No Exacerbation, Progression, or Severe Exacerbation? @ -No Poses a threat to life or bodily function? How? (Chest pain, USA, LA, pneumonia, PE, COPD, DKA, ARF, appy, cholecystitis, CVA, Diverticulitis, Homicidal, Suicidal, threat to staff... and all critical care pts) @ -No Disposition Clinical Impression: Sciatica Disposition: HOME SELF-CARE Condition: Good Instructions (If sedation given, give patient instructions): Sciatica (ED) Additional Instructions: Follow-up with PCP. Report back to ER with any new or worsening symptoms. Alternate Motrin and Tylenol as needed for pain control. Take medication as prescribed, do not take cyclobenzaprine before driving or operating heavy machinery Prescriptions: Cyclobenzaprine [Flexeril] 10 mg PO TID PRN #20 tab PRN Reason: Spasms Is patient prescribed a controlled substance at d/c from ED?: No Referrals: Nonstaff,Physician [Primary Care Provider] - 1-2 days
[2023-01-22 03:10] VITALS: BP 143/87; PULSE 78; RESP 16
[2023-01-22] MEDS ORDERED: LIDOCAINE 5% PATCH TOPICAL SCH (09:00)
== END 2023-01-22 02:00 | disposition home or self-care (01) ==
LOC: EC 23:03
DX: M54.40 Lumbago with sciatica, unspecified side (principal); M19.90 Unspecified osteoarthritis, unspecified site; Z87.891 Personal history of nicotine dependence; Z88.0 Allergy status to penicillin
CPT/HCPCS: 99283; 96372 ×3; J1100; J2360; J1885

== ENCOUNTER → 2023-01-27 | Outpatient (CLI) | payer OTHER ==
--- NOTE | 2023-02-04 14:32 | MR ---
EXAMINATION TYPE: MR hip RT wo con DATE OF EXAM: 01/27/2023 COMPARISON: Radiographs 08/06/2022 and 08/20/2020 HISTORY: 53-year-old female M25.551, Right hip pain, hx surgery. TECHNIQUE: Multiplanar, multisequence images of the right hip were obtained without IV contrast. FINDINGS: Extensive metal artifact related to the patient's right hip arthroplasty causes some limitation in as sessment of the adjacent structures. There appears to be a possible moderate joint effusion with small inferior loose bodies measuring up to 3 mm as well as a small anterior loose body measuring 7 mm. Besides the joint effusion, no sizable periprosthetic fluid is identified. There appears to be a small effusion within the right subgluteus minimus bursa but the tendon appears to be grossly intact at its greater trochanteric insertion. Symmetric appearance to the bilateral g luteal musculature. The hamstrings origin on the left is considerably smaller than on the right. Possibly related to prio r injury. The bilateral rectus femoris origins appear intact as do the bilateral iliopsoas insertions. There is prominent signal at the left gluteal insertion on the greater trochanter and a small trochanteric bu rsitis. Asymmetric right external iliac chain lymphadenopathy measuring up to 2.7 cm. No inguinal adenopathy identified. Uterus is anteverted. Both ovaries are visualized. No abnormal fluid collections in the pelvis. The SI joints and sacrum appear intact. At the left hip, there is linear fluid signal undercutting the labral chondral junction along the ant erior superior quadrant that could represent a prominent sublabral foramen vs labral tear. No paralab ral cyst is seen. Symmetric course, caliber, and signal intensity of the sciatic nerves. IMPRESSION: 1. Metal artifact limiting the evaluation. There is a moderate underlying prosthetic right hip joint effusion with small loose bodies measuring up to 3 mm inferiorly and up to 7 mm anteriorly. The joint effusion is nonspecific and should be correlated clinically. 2. Aside from this effusion, there is also a small subgluteus minimus bursitis on the right but, othe rwise, no other sizable periprosthetic fluid collection is identified. 3. Underlying right external iliac chain lymphadenopathy measuring up to 2.7 cm. Findings probably re active in the absence of any known primary neoplasm. Close CT surveillance follow-up recommended to e nsure stability/resolution. If further evaluation is indicated at this time, consider targeted ultras ound to attempt visualization for possible tissue sampling. 4. At least moderate gluteal insertional tendinosis on the left with a small trochanteric bursitis. 5. The left hamstring origin is considerably smaller on the left suggesting sequela of an old injury.
== END | disposition home or self-care (01) ==
LOC: RADMRIMAIN 06:19
PROVIDERS: ATTEND Internal Medicine
DX: M25.551 Pain in right hip (principal); M70.61 Trochanteric bursitis, right hip; M25.451 Effusion, right hip; R59.0 Localized enlarged lymph nodes

== ENCOUNTER → 2023-02-06 | Outpatient (CLI) | payer OTHER ==
[2023-02-06 17:53] LABS: Erythrocyte Sedimentation Rate 24 mm/Hr (0-30)
[2023-02-07 05:15] LABS: Basophils # (A) 0.05 X 10*3/uL (0.00-0.10); Basophils % (A) 0.6 %; Eosinophils # (A) 0.16 X 10*3/uL (0.04-0.35); Eosinophils % (A) 1.8 %; HCT 34.2 % (37.2-46.3); HGB 10.8 d/dL (12.0-15.0); Lymphocytes # (A) 2.53 X 10*3/uL (0.90-5.00); Lymphocytes % (A) 27.9 %; MCHC 31.6 d/dL (32.0-37.0); MCV 85.5 FL (80.0-97.0); Mean Platelet Volume 9.7 FL (9.5-12.2); Monocytes # (A) 0.56 X 10*3/uL (0.20-1.00); Monocytes % (A) 6.2 %; NRBC Per 100 WBC 0 X 10*3/uL (0.00-0.01); Neutrophils # (A) 5.74 X 10*3/uL (1.80-7.70); Neutrophils % (A) 63.2 %; Platelet Count 347 X 10*3/uL (140-440); RDW 14.1 % (11.5-14.5); WBC 9.07 X 10*3/uL (4.50-10.00)
== END | disposition home or self-care (01) ==
LOC: LABWHC1 10:52
PROVIDERS: ATTEND Orthopaedic Surgery
DX: Z09 Encounter for follow-up examination after completed treatment for conditions other than malignant neoplasm (principal); M25.551 Pain in right hip; Z96.641 Presence of right artificial hip joint
CPT/HCPCS: 36415; 85025; 85652; 86140

== ENCOUNTER → 2023-02-16 | Outpatient (CLI) | payer OTHER ==
--- NOTE | 2023-02-16 13:02 | BD ---
EXAMINATION TYPE: Axial Bone Density DATE OF EXAM: 02/16/2023 CLINICAL HISTORY: 53 years old Female. ICD-10 CODE: M81.0 AGE RELATED OSTEO Height: 62 Weight: 222.5 FRAX RISK QUESTIONS: Alcohol (3 or more units per day): no Family History (Parent hip fracture): no Glucocorticoids (More than 3mos): no (Ex: prednisone, prednisolone, methylprednisolone, dexamethasone, and hydrocortisone). History of Fracture in Adulthood: no Secondary Osteoporosis: 1. Type 1 Diabetes: no 2. Hyperthyroidism: no 3. Menopause before 45: no 4. Malnutrition: no 5. Chronic liver disease: no Rheumatoid Arthritis: no Current Tobacco Use: no RISK FACTORS HISTORY OF: Surgery to Spine/Hip(right/left)/Wrist (right/left): right hip When: 2020 Family History of Osteoporosis: yes Active: no Diet low in dairy products/other sources of calcium: yes Postmenopausal woman: yes Lost more than 2 inches in height since high school: no MEDICATIONS: Additional History: EXAM MEASUREMENTS: Bone mineral densitometry was performed using the [email or web address] System. Bone mineral density as measured about the Lumbar spine is: ----- L1-L4(G/cm2): 1.353 T Score Values are as follows: ----- L1: 2.0 ----- L2: 1.3 ----- L3: 1.6 ----- L4: 0.9 ----- L1-L4: 1.4 Z Score Values are as follows: ----- L1: 1.7 ----- L2: 1.0 ----- L3: 1.2 ----- L4: 0.5 ----- L1-L4: 1.1 Bone mineral density : baseline Bone mineral density about the L hip (g/cm2): 1.225 T Score values are as follows: -----L Neck: 0.7 -----L Total: 1.7 Z Score values are as follows: -----L Neck: 1.0 -----L Total: 1.5 Bone mineral density : baseline FRAX%s: The graph provided illustrates a 4.2% chance for a major osteoporotic fx and a 0.0% chance fo r the hips probability for fx in 10 years time. IMPRESSION: Normal (Values between +1 and -1 indicate normal bone mass). Consider repeating this study in 5 year s or sooner if there is some new clinical indication. NOTE: T-SCORE=SD OF THE YOUNG ADULT MEAN.
== END | disposition home or self-care (01) ==
LOC: RADBDWWP 07:49
PROVIDERS: ATTEND Internal Medicine
DX: M81.0 Age-related osteoporosis without current pathological fracture (principal); Z78.0 Asymptomatic menopausal state
CPT/HCPCS: 77080

== ENCOUNTER 2023-03-09 07:25 | Inpatient (IN) | payer OTHER ==
[~2023-03-09 07:25] MED LIST changes: +ACETAMINOPHEN TAB 500 MG TAB PO PRN; +GABAPENTIN 300 MG CAP PO PRN; -LACTATED RINGERS 1,000 ML IV SCH; +MELOXICAM 7.5 MG TAB PO PRN; +ONDANSETRON 4 MG/2 ML VIAL IVP ONE; -ONDANSETRON 4 MG/2 ML VIAL IVP PRN; +TRANEXAMIC 1,000 MG/100ML-NACL 1,000 MG in SALINE 1 100ML.BAG IVPB PRN
[2023-03-09] MEDS: LACTATED RINGERS 1,000 ML IV SCH ×4 (08:02→20:39)
[2023-03-09] MEDS ORDERED: DEXAMETHASONE SOD PHOSPHATE 4 MG/ML 1 ML VIAL IVP ONE (08:03)
[2023-03-09] MEDS ORDERED: MIDAZOLAM 2 MG/2 ML VIAL IVP ONE (09:01)
[2023-03-09] MEDS ORDERED: MAGNESIUM HYDROXIDE 2,400 MG/30 ML CUP PO PRN (09:08)
[2023-03-09] MEDS ORDERED: TEMAZEPAM 15 MG CAP PO PRN (09:08)
[2023-03-09] MEDS ORDERED: HYDROmorphone 1 MG/ML 1 ML SYRINGE IVP PRN (09:08)
[2023-03-09] MEDS ORDERED: HYDROmorphone 0.5 MG/0.5 ML SYRINGE IVP PRN ×2 (09:08)
[2023-03-09] MEDS ORDERED: NALOXONE 0.4 MG/ML 1 ML VIAL IV PRN (09:08)
[2023-03-09] MEDS ORDERED: HYDROcodone/APAP 5-325MG 1 EACH TAB PO PRN (09:08)
[2023-03-09] MEDS ORDERED: ROPIVACAINE 5 MG/ML 30 ML VIAL MISCELLANE ONE (09:16)
[2023-03-09] MEDS ORDERED: ceFAZolin 1,000 MG in SODIUM CHLORIDE 0.9% 1,000 ML IRRIGATION ONE (09:17)
[2023-03-09] MEDS ORDERED: LACTATED RINGERS 1,000 ML IV ONE (10:58)
--- NOTE | 2023-03-09 11:17 | P.OP ---
Date of Procedure: 03/09/23 Preoperative Diagnosis: Loose acetabular component right total hip arthroplasty Postoperative Diagnosis: Loose acetabular component right total hip arthroplasty Procedure(s) Performed: Revision right total hip arthroplasty Implants: [employer]hew R3, multi-hole hemispherical acetabular shell, 52 mm [employer]nor [employer]hew Reflection 6.5 mm cancellus screw, 20 mm 2, 25 mm [employer] R3, XLPE 20 acetabular liner [employer]hew Oxinium femoral head 36 m, +0 All components were press-fit. The articulation is Oxinium on polyethylene. Anesthesia: spinal Surgeon: Shaji Cummings [employer] Professor #1: Muriel Perdomo Estimated Blood Loss (ml): 500 Pathology: other (Cultures 2) Condition: stable Disposition: PACU Indications for Procedure: This is a 53-year-old female that had a total hip arthroplasty performed on 08/20/2020. She did well initially but began having more pain in her hip and groin with ambulation. X-rays demonstrate loosening of acetabular component. The femoral component appears well fixed. Infectious workup was negative and after discussing the surgical nonsurgical treatment options with her at length, I recommended a revision of her total hip arthroplasty and informed consent was obtained. Operative Findings: The operative findings are consistent with loosening of acetabular component right total hip arthroplasty. Description of Procedure: The patient was seen and evaluated in the preoperative area and the consent was reviewed. The operative site was marked with a skin marker. The patient verified the procedure and operative site. A ANTONIO block was placed by anesthesia in the preoperative area. The patient was then brought to the operating room and given preoperative antibiotics intravenously. 1 g of Tranexamic acid was also given intravenously. A spinal anesthetic was administered by the anesthesia department. The patient was then placed on the Dustin table with the bony prominences well-padded. The hip area was then prepped with a ChloraPrep solution and draped in the usual sterile fashion. A universal timeout was then performed, which confirmed the patient's name, surgical site, ALLERGIES, and procedure being performed on the consent. Next the incision site was located at 1 cm distal and 4 cm lateral to the anterior superior iliac spine. The skin and subcutaneous tissues were sharply incised. Incision was carefully dissected down to the fascia overlying the tensor fascia faina muscle. This fascia was then incised in line with the muscle fibers. Care was taken to stay laterally in order to avoid injuring the lateral femoral cutaneous nerve. Next, using blunt finger dissection, the tensor fascia faina muscle was dissected off its investing fascia. The muscle was then carefully retracted laterally with a cobra retractor over the lateral neck of the femur. Next, the circumflex vessels were identified and cauterized using the Aquamantis device. The anterior hip capsule was then exposed. The capsule was then opened and an inverted T fashion. The retractors were then placed intracapsularly. The retractors were maintained intracapsular throughout the procedure. The proximal femur was then visualized. Fluoroscopic x-rays were then taken in order to evaluate the preoperative leg lengths. A small amount of traction was placed on the leg. The hip was then gently dislocated and the femoral head was removed from the trunnion. The femoral stem was inspected and found to be well fixed. Attention was then directed to the acetabulum. The acetabulum was exposed and inspected. The acetabular component was found to be grossly loose. The polythylene insert was then removed without incident. The acetabular component along with screws were then removed. Sequential reaming of the acetabulum was performed using fluoroscopic guidance until there was a good bed of bleeding cancellus bone. When the appropriate size was reached, a trial was then placed. The position and fit of the trial was checked with fluoroscopy. The trial was then removed. Then, using fluoroscopic guidance, the final implant was impacted at 20 of anteversion and 40 of abduction, and fully seated in the acetabulum. 2 screws were then placed in the acetabulum. Again fluoroscopy was used to check position of the screws. Next, the liner was then impacted, with a 20 elevated liner located in the anterior superior quadrant. Component locking was confirmed. A trial was then placed with appropriate head and neck, and the hip was gently reduced with the aid of the Dustin table. Fluoroscopy was then used to check position of the components, as well as to evaluate the leg lengths and offset. The leg lengths and offset were measured as closely as possible to ensure stability of the hip. The hip was then gently dislocated and the trials were then removed. Final implants were then impacted and the hip was again reduced. Final fluoroscopic x-rays confirmed that the components were in anatomic position. The leg lengths and offset were measured and were found to coincide with the trial measurements. The hip was also taken through range of motion, and found to be stable. The hip was then copiously irrigated with antibiotic solution with pulsatile lavage. The hip was then irrigated with Irrisept solution. The soft tissues were then injected with a ropivacaine solution. A second dose of 1 g of Tranexamic acid was also given intravenously. The fascia was then closed with 2-0 strata fix suture. The subcutaneous tissue was closed with 3-0 Vicryl. The subcuticular tissue was closed with 3-0 strata fix suture. The skin was then closed with Exofin skin glue. After the glue and dried, and Optifoam silver impregnated dressing was applied. The patient was then transferred to the recovery room in stable condition. The assistant controller TEA Mendez was required due to the complexity of surgery, and the need for skilled surgical forceps fabricator for positioning, draping, exposure, retraction, and closure of the wound.
--- NOTE | 2023-03-09 11:37 | XR ---
Intraoperative/procedural fluoroscopic services were provided for total right hip arthroplasty. Total fluoroscopy time is 36.3 seconds with a total of 3 submitted images to PACS. Total DAP 2.7071 Gycm2. Please see the operative note for further details.
[2023-03-09] MEDS: HYDROmorphone 0.5 MG/0.5 ML SYRINGE IVP PRN ×2 (11:57→12:24)
--- NOTE | 2023-03-09 12:32 | XR ---
EXAMINATION TYPE: XR Hip Limited RT DATE OF EXAM: 03/09/2023 CLINICAL HISTORY: Postoperative evaluation TECHNIQUE: Single portable view of the right hip was submitted. FINDINGS: Noted are changes of total hip arthroplasty with femoral and acetabular components appearin g well seated. Alignment is anatomic. Postsurgical soft tissue changes are evident. IMPRESSION: Satisfactory postoperative alignment
--- NOTE | 2023-03-09 17:31 | P.CONS ---
History of Present Illness - Reason for Consult Consult date: 03/09/23 medical management Requesting physician: Shaji Cummings - History of Present Illness History of Presenting Illness: Patient is a very pleasant 53-year-old female with a past medical history of osteoarthritis. She is currently admitted under orthopedic surgery team status post revision of right total hip arthroplasty. We were consulted for medical management throughout patient's hospitalization. Patient seen and fully evaluated at bedside shortly after arrival to room 455. Patient currently reports controlled postoperative pain and denies having any postoperative nausea or vomiting. She reports urinating without any difficulties since completion of surgical procedure. Patient denies having any significant medical history and home medications consist of vitamins and pain pill. Patient currently denies having any headache, lightheadedness, dizziness, chest pain, palpitations, shortness of breath, or experiencing any numbness/tingling/weakness/swelling in her extremities. Review of systems: Pertinent positives and negatives as discussed in HPI, a complete review of systems was performed and all other systems are negative. Physical exam: Vital signs reviewed and stable. General: Nontoxic, no distress and appears stated age. Derm: Skin warm and dry, normal coloration for ethnicity. Head: Atraumatic, normocephalic and symmetric. Eyes: EOMs intact, no lid lag, and anicteric sclera Mouth: no lip lesions, mucus membranes moist Cardiovascular: regular rate and rhythm with normal S1S2, no murmur, positive posterior tibial pulses bilaterally, and cap refill < 2 seconds. Lungs: Respirations even, regular, and unlabored on room air. Lungs CTA bilaterally, no rhonchi, no rales, no wheezing, and no accessory muscle usage. Abdominal: soft, nontender to palpation, no guarding, no appreciable organomegaly Ext: ROM intact. No gross muscle atrophy, no edema, no contractures Neuro: Speech clear, face symmetrical and CN II-XII grossly intact with no noted focal neuro deficits Psych: Alert and oriented to person, place, time, and situation. Appropriate and pleasant affect. Assessment and Plan of Care: Osteoarthritis Status post revision of right total hip arthroplasty -Vital signs reviewed. Blood pressure 119/57, heart rate 71, respiratory rate 17, temp 97.6F, SpO2 of 90% on room air. -Symptomatic care and pain management with Ramona 5/325 mg tablets every 6 hours as needed for mild pain, Dilaudid 0.5 mg IVP every 3 hours as needed for moderate to severe pain. -DVT prophylaxis with aspirin 3 and 25 mg twice a day. -Fall precautions -Post-op wound/dressing management, weightbearing, and PT/OT per primary admitting orthopedic surgery team. -Orders placed for morning CBC, CMP, and magnesium. Will follow up with postoperative labs and place additional orders as indicated based upon these results. Thank you for allowing us to participate in the care of this pleasant patient. Do not hesitate to contact us with questions. Someone can be reached from the [facility] hospitalist group all hours of the day at [phone] or via [employer]stok. Patient was seen independently by Nurse Practitioner. This document was prepared using Ontela dictation software. Please allow for errors in hydrate thickener operator while rare they do occur. Past Medical History Past Medical History: Osteoarthritis (OA) Additional Past Medical History / Comment(s): , She has had hip and knee problems and has had replacement surgery for these. History of Any Multi-Drug Resistant Organisms: None Reported Past Surgical History: Orthopedic Surgery Additional Past Surgical History / Comment(s): R HIP replacement 2020, R KNEE replacement 2021. Unilateral salpingectomy for ectopic . Past Anesthesia/Blood Transfusion Reactions: No Reported Reaction Additional Past Anesthesia/Blood Transfusion Reaction / Comm: no hx blood transfusion. takes awhile to wake up with anesthesia Smoking Status: Former smoker - Past Family History Mother Family Medical History: No Reported History Father Family Medical History: Diabetes Mellitus, Hypertension Additional Family Medical History / Comment(s): Paternal aunt had breast cancer. Medications and Allergies Home Medications Medication Instructions Recorded Confirmed Type Multivitamins, Thera [Multivitamin 1 tab PO DAILY 03/05/23 03/05/23 History (formulary)] Vit B(Unk) 1 tab PO DAILY 03/05/23 03/05/23 History Vit D (Unk) 1 tab PO DAILY 03/05/23 03/05/23 History Aspirin 81 mg PO DAILY 03/09/23 03/09/23 History Aspirin 325 mg PO BID #60 tab 03/09/23 Rx HYDROcodone/APAP 5-325MG [Ramona 1 tab PO Q6H 03/09/23 03/09/23 History 5-325] HYDROcodone/APAP 7.5-325MG [Ramona 1 - 2 tab PO Q6HR PRN #32 tab 03/09/23 Rx 7.5-325] Meloxicam 7.5 mg PO DAILY PRN #30 tab 03/09/23 Rx Ondansetron Odt [Zofran Odt] 4 mg PO Q8HR PRN #14 tab 03/09/23 Rx Sennosides-Docusate Sodium 1 tab PO BID #60 tablet 03/09/23 Rx [Senokot-S] Allergies Allergy/AdvReac Type Severity Reaction Status Date / Time Penicillins AdvReac Mild headaches Verified 03/09/23 08:01 Physical Exam Vitals: Vital Signs Temp Pulse Resp BP Pulse Ox 03/09/23 17:00 71 17 119/57 98 03/09/23 16:30 72 15 133/75 96 03/09/23 16:00 66 15 152/63 96 03/09/23 15:30 66 15 126/59 95 03/09/23 15:00 66 15 141/62 99 03/09/23 14:30 65 14 123/67 98 03/09/23 14:00 63 15 115/58 95 03/09/23 13:30 61 15 122/59 95 03/09/23 13:00 58 L 17 113/58 96 03/09/23 12:45 60 94 H 107/54 94 L 03/09/23 12:30 61 16 119/57 93 L 03/09/23 12:15 62 14 104/51 97 03/09/23 12:00 59 L 15 120/64 99 03/09/23 11:45 64 17 126/72 98 03/09/23 09:10 67 18 126/58 99 03/09/23 08:08 96.8 F L 74 18 154/65 97 Intake and Output 03/09/23 03/09/23 03/09/23 06:59 14:59 22:59 Intake Total 1751 Output Total 500 700 Balance 1251 -700 Intake: IV 1751 Output: Urine 700 Estimated Blood Loss 500 Other: Weight 103.6 kg
[2023-03-09] MEDS: ASPIRIN 325 MG TAB PO SCH (20:32)
--- NOTE | 2023-03-09 20:56 | P.ANPRN ---
Procedure Note - Anesthesia - Nerve Block Performed Right Nicholas Single Time Out Performed: Yes Date of Procedure: 03/09/23 Procedure Start Time: :00 Procedure Stop Time: :08 Location of Patient: PreOp Indication: Acute Post-Operative Pain, Requested by Surgeon Sedation Type: Sedate with meaningful contact maintained Preparation: Sterile Prep Position: Supine Needle Types: Pajunk Needle Gauge: 21 Ultrasound used to visualize needle placement: Yes Ultrasound used to observe medication spread: Yes Blood Aspirated: No Pain Paresthesia on Injection Noted: No Resistance on Injection: Normal Image Stored and Saved: Yes Events: Uneventful and Well Tolerated (ropi ,5% 25cc plus dexamethasone 4mg)
[2023-03-09] MEDS ORDERED: SENNOSIDES-DOCUSATE SODIUM 1 EACH TAB PO SCH (21:00)
[2023-03-10] MEDS: LACTATED RINGERS 1,000 ML IV SCH ×3 (06:06→06:15)
[2023-03-10] MEDS: HYDROcodone/APAP 5-325MG 1 EACH TAB PO PRN ×2 (06:11→11:52)
[2023-03-10 08:23] VITALS: BP 107/71; PULSE 64; RESP 17; TEMP 97.8
[2023-03-10] MEDS ORDERED: MELOXICAM 7.5 MG TAB PO SCH (09:00)
[2023-03-10] MEDS ORDERED: FAMOTIDINE 20 MG TAB PO SCH (09:00)
[2023-03-10] MEDS: ASPIRIN 325 MG TAB PO SCH (09:02)
[2023-03-10 11:13] LABS: Basophils # (A) 0.01 X 10*3/uL (0.00-0.10); Basophils % (A) 0.1 %; Eosinophils # (A) 0 X 10*3/uL (0.04-0.35); Eosinophils % (A) 0 %; HCT 29.9 % (37.2-46.3); HGB 9.4 d/dL (12.0-15.0); Lymphocytes # (A) 2.14 X 10*3/uL (0.90-5.00); Lymphocytes % (A) 23.2 %; MCH 27.2 pg (27.0-32.0); MCHC 31.4 d/dL (32.0-37.0); MCV 86.4 FL (80.0-97.0); Monocytes # (A) 0.64 X 10*3/uL (0.20-1.00); Monocytes % (A) 6.9 %; NRBC Per 100 WBC 0 X 10*3/uL (0.00-0.01); Neutrophils % (A) 69.5 %; Platelet Count 335 X 10*3/uL (140-440); RBC 3.46 X 10*6/uL (4.10-5.20); WBC 9.22 X 10*3/uL (4.50-10.00)
[2023-03-10 11:17] LABS: ALT 23 U/L (8-44); AST 28 U/L (13-35); Albumin 3.5 d/dL (3.8-4.9); Albumin/Globulin Ratio 1.52 Ratio (1.60-3.17); Alkaline Phosphatase 64 U/L (41-126); Blood Urea Nitrogen 14.4 mg/dL (9.0-27.0); Calcium 9.1 mg/dL (8.7-10.3); Carbon Dioxide 27.9 mmol/L (21.6-31.8); Chloride 107 mmol/L (96-109); Globulin 2.3 d/dL (1.6-3.3); Glucose 121 mg/dL (70-110); Magnesium 1.8 mg/dL (1.5-2.4); Potassium 3.9 mmol/L (3.5-5.5); Sodium 144 mmol/L (135-145); Total Bilirubin 0.3 mg/dL (0.3-1.2); Total Protein 5.8 d/dL (6.2-8.2)
--- NOTE | 2023-03-10 11:39 | P.DS ---
Providers Date of admission: 03/09/23 07:25 Expected date of discharge: 03/10/23 Attending physician: Shaji Cummings Consults: 03/09/23 09:25 Consult Physician Routine Consulting Provider: Oliva Baig Consult Reason/Comments: Medical management Do you want consulting provider notified?: Yes Primary care physician: Kieran Alanis MD - Discharge Diagnosis(es) (1) S/P revision of total hip Current Visit: Yes Status: Acute (2) Hip pain, right Current Visit: Yes Status: Acute (3) History of total right hip arthroplasty Current Visit: Yes Status: Acute Hospital Course: This is a pleasant 53-year-old female who presented with loose acetabular component of a right total hip arthroplasty who failed outpatient conservative therapy. She was admitted for revision right total hip arthroplasty. The patient tolerated the procedure well and did well postoperatively. She states her right hip pain is well-controlled. She has been working with therapy without significant difficulty. She's been ambulating well. She does have a walker. She is ready for discharge home today. Condition on day of discharge stable. Patient was cleared preoperatively for surgery by Dr. Alanis. Patient currently denies any nausea, vomiting, fever, or chills. Patient is eating and voiding freely without difficulty. Patient may shower Optifoam dressing intact. Patient may remove Optifoam dressing in 7 days and shower without a dressing at that time. Patient should refrain from driving until at least after their first follow-up appointment in the office. She may ambulate as tolerated on the right lower extremity with the assistance of a walker. MAPS has been reviewed previously. An "Opiod Start Talking" Form has been signed and placed in the patient's chart. A prescription has been written for hydrocodone 7.5 mg/325 mg, 1-2 tabs every 6 hours as needed for acute pain, dispensed #32. Hold aspirin 81 mg daily while taking aspirin 325 mg twice a day. Physical Exam on day of discharge: Status post surgical day number 1 Patient is examined sitting bedside upright in a chair Patient is awake and alert, and oriented 3 Vital signs stable Good chest excursion with deep inspiration and expiration No signs or symptoms of DVT; no calf pain Lower extremity cuffs not currently in place bilaterally Dressing of the right hip is clean, dry, and intact; no erythema, purulence, or signs of infection Dorsiflexion, plantarflexion, and extensor hallucis longus positive sustained on the right Neurovascularly intact bilateral lower extremities Procedures: Revision right total hip arthroplasty Patient Condition at Discharge: Stable Plan - Discharge Summary Discharge Rx Participant: No New Discharge Prescriptions: New Meloxicam 7.5 mg PO DAILY PRN #30 tab PRN Reason: Pain HYDROcodone/APAP 7.5-325MG [[place] 7.5-325] 1 - 2 tab PO Q6HR PRN #32 tab PRN Reason: Pain Sennosides-Docusate Sodium [Senokot-S] 1 tab PO BID #60 tablet Aspirin 325 mg PO BID #60 tab Ondansetron Odt [Zofran Odt] 4 mg PO Q8HR PRN #14 tab PRN Reason: Nausea No Action Vit B(Unk) 1 tab PO DAILY Multivitamins, Thera [Multivitamin (formulary)] 1 tab PO DAILY HYDROcodone/APAP 5-325MG [[place] 5-325] 1 tab PO Q6H Aspirin 81 mg PO DAILY Vit D (Unk) 1 tab PO DAILY Discharge Medication List Multivitamins, Thera [Multivitamin (formulary)] 1 tab PO DAILY 03/05/23 [History] Vit B(Unk) 1 tab PO DAILY 03/05/23 [History] Vit D (Unk) 1 tab PO DAILY 03/05/23 [History] Aspirin 81 mg PO DAILY 03/09/23 [History] Aspirin 325 mg PO BID #60 tab 03/09/23 [Rx] HYDROcodone/APAP 5-325MG [[place] 5-325] 1 tab PO Q6H 03/09/23 [History] HYDROcodone/APAP 7.5-325MG [[place] 7.5-325] 1 - 2 tab PO Q6HR PRN #32 tab 03/09/23 [Rx] Meloxicam 7.5 mg PO DAILY PRN #30 tab 03/09/23 [Rx] Ondansetron Odt [Zofran Odt] 4 mg PO Q8HR PRN #14 tab 03/09/23 [Rx] Sennosides-Docusate Sodium [Senokot-S] 1 tab PO BID #60 tablet 03/09/23 [Rx] Follow up Appointment(s)/Referral(s): [facility], [NON-STAFF] - 1-2 Days ([facility] will call you to schedule your in home physical therapy visits. ) Shaji Cummings DO [Doctor of Osteopathic Medicine] - 2 Weeks Activity/Diet/Wound Care/Special Instructions: 1. May bear weight as tolerated with walker on the right lower extremity. 2. Remove Optifoam dressing 7 days postop. 3. May shower 48 hours postop. 4. Hold aspirin 81 mg while on aspirin 325 mg twice a day.
--- NOTE | 2023-03-10 15:36 | P.PN ---
Subjective Progress Note Date: 03/10/23 Hospital course: Patient is a very pleasant 53-year-old female with a past medical history of iron deficiency anemia and osteoarthritis. She is currently admitted under orthopedic surgery team status post revision of right total hip arthroplasty. We were consulted for medical management throughout patient's hospitalization. Physical exam: Patient seen and fully evaluated at bedside this morning. She reports mild pain to right lateral hip/thigh but states controlled with current pain medication regimen. She denies having any numbness/tingling/weakness in extremities and denies having any urinary retention or any other complaints at this time. Vital signs reviewed and stable. General: Nontoxic, no distress and appears stated age. Derm: Skin warm and dry, normal coloration for ethnicity. Head: Atraumatic, normocephalic and symmetric. Eyes: EOMs intact, no lid lag, and anicteric sclera Mouth: no lip lesions, mucus membranes moist Cardiovascular: regular rate and rhythm with normal S1S2, no murmur, positive posterior tibial pulses bilaterally, and cap refill < 2 seconds. Lungs: Respirations even, regular, and unlabored on room air. Lungs CTA bilaterally, no rhonchi, no rales, no wheezing, and no accessory muscle usage. Abdominal: soft, nontender to palpation, no guarding, no appreciable organomegaly Ext: ROM intact. No gross muscle atrophy, no edema, no contractures Neuro: Speech clear, face symmetrical and CN II-XII grossly intact with no noted focal neuro deficits Psych: Alert and oriented to person, place, time, and situation. Appropriate and pleasant affect. Assessment and Plan of Care: Acute blood loss anemia, expected outcome of post-operative status History of iron deficiency anemia -Preoperative blood work showing hemoglobin of 11.6 on 02/27/23. Postoperative labs showing acute blood loss anemia with CBC showing microcytic anemia with hemoglobin of 9.4. -This is a stable expected finding, no need for transfusion or further interve ntions at this time. Osteoarthritis Status post revision of right total hip arthroplasty -Vital signs reviewed. Blood pressure 119/57, heart rate 71, respiratory rate 17, temp 97.6F, SpO2 of 90% on room air. -Symptomatic care and pain management with [place] 5/325 mg tablets every 6 hours as needed for mild pain, Dilaudid 0.5 mg IVP every 3 hours as needed for moderate to severe pain. -DVT prophylaxis with aspirin 325 mg twice a day. -Fall precautions -Post-op wound/dressing management, weightbearing, and PT/OT per primary admitting orthopedic surgery team. -Orders placed for morning CBC, CMP, and magnesium. Will follow up with postoperative labs and place additional orders as indicated based upon these results. Data reviewed: -Preoperative blood work showing hemoglobin of 11.6 on 02/27/23. Postoperative labs showing acute blood loss anemia with CBC showing microcytic anemia with hemoglobin of 9.4. BMP unremarkable. Magnesium normal findings at 1.8. And liver profile also normal findings. -Vital signs reviewed. Blood pressure 107/71, heart rate 64, respiratory rate 17, temp 97.8, and SpO2 of 99% on room air. Medically, patient is optimized and cleared for discharge once cleared by primary admitting orthopedic surgery team. Thank you for allowing us to participate in the care of this pleasant patient. Do not hesitate to contact us with questions. Someone can be reached from the [facility] hospitalist group all hours of the day at [phone] or via perfect serve. Patient was seen independently by Nurse Practitioner. This document was prepared using MD2U dictation software. Please allow for errors in behavior support specialist while rare they do occur. I reviewed the documentation as provided by the MAGED above, who is the original author of this note. I agree with the documented assessment and plan, with the following changes: none Objective - Vital Signs Vital signs: Vital Signs Temp 97.8 F 03/10/23 07:09 Pulse 64 03/10/23 07:09 Resp 17 03/10/23 07:09 BP 107/71 03/10/23 07:09 Pulse Ox 99 03/10/23 07:09 FiO2 Intake & Output 03/09/23 03/10/23 03/10/23 18:59 06:59 18:59 Intake Total 1751 Output Total 1200 Balance 551 Weight 103.6 kg Intake: IV 1751 Output: Urine 700 Estimated Blood Loss 500 Other: Voiding Method Toilet # Voids 0 2 - Labs CBC & Chem 7: 03/10/23 07:30 03/10/23 07:30
[2023-03-10] MEDS ORDERED: TEMAZEPAM 15 MG CAP PO PRN (22:00)
== END 2023-03-10 13:48 | disposition home health service (06) | DRG 467 ==
LOC: 2ORMAIN 07:25 → 4SSUR 17:09
PROVIDERS: ADMIT Orthopaedic Surgery; ATTEND Orthopaedic Surgery
PROC: 0SR906A Replacement of Right Hip Joint with Oxidized Zirconium on Polyethylene Synthetic Substitute, Uncemented, Open Approach (ICD-10-PCS; principal; 2023-03-09 09:10)
PROC: 0SP90JZ Removal of Synthetic Substitute from Right Hip Joint, Open Approach (ICD-10-PCS; principal; 2023-03-09 09:10)
DX: T84.030A Mechanical loosening of internal right hip prosthetic joint, initial encounter (principal); D62 Acute posthemorrhagic anemia; Y79.2 Prosthetic and other implants, materials and accessory orthopedic devices associated with adverse incidents; Z87.891 Personal history of nicotine dependence; D50.9 Iron deficiency anemia, unspecified; M16.11 Unilateral primary osteoarthritis, right hip; Z79.82 Long term (current) use of aspirin; Z79.1 Long term (current) use of non-steroidal anti-inflammatories (NSAID); Z96.651 Presence of right artificial knee joint; Z88.0 Allergy status to penicillin
CPT/HCPCS: 64447; 73501; 80053; 83735; 85025; 86850; 86900; 86901

== ENCOUNTER → 2023-05-11 | Outpatient (CLI) | payer OTHER ==
--- NOTE | 2023-05-11 12:08 | MM ---
Reason for Exam: Screening (asymptomatic). Last screening mammogram was performed 12 month(s) ago. Patient History: Menarche at age 10. Patient has no children. Postmenopausal. Maternal grandmother had breast cancer. Paternal aunt had breast cancer. Risk Values: Yi 5 year model risk: 1.3%. NCI Lifetime model risk: 9.1%. Prior Study Comparison: 12/13/2015 Bilateral Screening Mammogram, [facility]. 04/30/2021 Bilateral Screening Mammogram, [facility]. 05/07/2022 Bilateral MG screening mammo w CAD, [facility]. Tissue Density: The breast tissue is almost entirely fat. Findings: Analyzed By CAD. There is no suspicious group of microcalcifications or new suspicious mass. Benign-appearing calcifications bilaterally. Overall Assessment: Benign, BI-RAD 2 Management: Screening Mammogram of both breasts in [address] [facility] will attempt to contact patient to return for supplemental views and ultrasound if indicated. Patient should continue monthly self-breast exams. A clinical breast exam by your physician is recommended on an annual basis. This exam should not preclude additional follow-up of suspicious palpable abnormalities. Note on Yi scores and lifetime risk: 1. A Yi score greater than 3% is considered moderate risk. If this is the case, consider specialist referral to assess eligibility for a risk reducing agent. 2. If overall lifetime risk for the development of breast cancer is 20% or higher, the patient may qualify for future screening with alternating mammogram and breast MRI. Electronically signed and approved by: Dajuan Gardner DO
== END | disposition home or self-care (01) ==
LOC: RADMAMWWP 11:01
PROVIDERS: ATTEND Internal Medicine
DX: Z12.31 Encounter for screening mammogram for malignant neoplasm of breast (principal); Z78.0 Asymptomatic menopausal state; Z80.3 Family history of malignant neoplasm of breast
CPT/HCPCS: 77063; 77067

== ENCOUNTER → 2023-05-26 | Outpatient (CLI) | payer OTHER ==
[2023-05-26 10:38] VITALS: BP 116/71; PULSE 92; RESP 18; TEMP 97.8
--- NOTE | 2023-05-26 10:52 | P.HPOB ---
History of Present Illness H&P Date: 05/26/23 Chief Complaint: The patient is here for her routine gynecologic exam. This is a 53-year-old with an LMP of 2019. The patient is without gynecologic complaints. Her screening mammogram was recently done on 05/11/2023 and was benign. She also had a normal bone density test done through her PCP on 02/16/2023. Review of Systems The patient has gained 17 pounds over the last year. She denies respiratory, cardiac, or G.I. problems. Past Medical History Past Medical History: Osteoarthritis (OA) Additional Past Medical History / Comment(s): She has had hip and knee problems and has had replacement surgery for these. 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 History of Any Multi-Drug Resistant Organisms: None Reported Past Surgical History: Orthopedic Surgery Additional Past Surgical History / Comment(s): R HIP replacement 2020, R KNEE replacement 2021. Right knee revision 2022. Unilateral salpingectomy for ectopic . Colonoscopy 2020(next after 10 years) Past Anesthesia/Blood Transfusion Reactions: No Reported Reaction Additional Past Anesthesia/Blood Transfusion Reaction / Comment(s): no hx blood transfusion. takes awhile to wake up with anesthesia Past Psychological History: No Psychological Hx Reported Smoking Status: Former smoker Past Alcohol Use History: Rare (1 drink per year.) Additional Past Alcohol Use History / Comment(s): Quit smoking in July 2020. Past Drug Use History: None Reported Additional Drug Use History / Comment(s): Rarely has used edible marijuana. Additional History: She is and has been with her boyfriend since 2012. They live together. 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 - Past Family History Mother Family Medical History: No Reported History Father Family Medical History: Diabetes Mellitus, Hypertension Additional Family Medical History / Comment(s): Paternal aunt had breast cancer. Medications and Allergies Home Medications Medication Instructions Recorded Confirmed Type Vit B(Unk) 1 tab PO DAILY 03/05/23 05/26/23 History Vit D (Unk) 1 tab PO DAILY 03/05/23 05/26/23 History Beets 1 tab PO DAILY 05/26/23 05/26/23 History Fish Oil/Dha/Epa [Fish Oil 1,200 1 each PO DAILY 05/26/23 05/26/23 History mg Fish Oil] Iron 18 mg PO DAILY 05/26/23 05/26/23 History Allergies Allergy/AdvReac Type Severity Reaction Status Date / Time Penicillins AdvReac Mild headaches Verified 05/26/23 10:11 Exam Vital Signs Temp Pulse Resp BP Pulse Ox 05/26/23 10:12 97.8 F 92 18 116/71 100 Intake and Output 05/25/23 05/26/23 05/26/23 22:59 06:59 14:59 Other: Weight 108.862 kg Height 5 foot 1 inch, weight 240 pounds, BMI 45.3. This is a well-developed well-nourished heavyset white female who is alert and oriented times 3 in no acute distress. HEENT: Within normal limits. NECK: Supple without mass or thyromegaly. CHEST AND LUNGS: Clear to auscultation. HEART: Regular rate and rhythm. BREASTS: Are without mass or discharge. AXILLARY EXAM: Negative for adenopathy. BACK: Negative for CVA tenderness. ABDOMEN: Soft, obese, nontender, without palpable masses. PELVIC EXAM: Normal external genitalia with mild atrophy. Cervix and vagina appear normal mild atrophy. There is no unusual discharge. There is no evidence of prolapse. The uterus is midposition, nongravid size and nontender. There are no palpable adnexal masses or tenderness. Bimanual examination is somewhat limited secondary to her size. RECTAL EXAM: Rectovaginal exam is negative for mass or tenderness and is negative for occult blood. EXTREMITIES: Nontender. IMPRESSION: 1. 53-year-old menopausal female with normal gynecologic exam. PLAN: 1. Pap smear was deferred since she had a negative Pap smear cotest on 05/06/2022. 2. Self breast awareness was discussed with the patient. We have also dis cussed symptoms associated with inflammatory breast cancer. 3. Screening mammogram was done on 05/11/2023 and was benign. She will repeat this in 1 year. 4. Osteoporosis prevention was discussed. I have stressed the importance of adequate calcium, vitamin D and regular exercise. Recommended amounts of calcium and vitamin D were also discussed. Bone density test was done on 02/16/2023 through her PCP and was normal. I recommended that she repeat this again at age 58. 5. She was advised to return in one year for her annual well woman exam.
== END ==
LOC: WWCWWP 09:48
PROVIDERS: ATTEND Obstetrics & Gynecology
DX: Z12.31 Encounter for screening mammogram for malignant neoplasm of breast (principal); M19.90 Unspecified osteoarthritis, unspecified site; F17.200 Nicotine dependence, unspecified, uncomplicated; Z80.3 Family history of malignant neoplasm of breast; Z87.59 Personal history of other complications of pregnancy, childbirth and the puerperium; Z88.0 Allergy status to penicillin; Z96.641 Presence of right artificial hip joint

== ENCOUNTER → 2023-08-19 | Outpatient (CLI) | payer OTHER ==
--- NOTE | 2023-08-19 13:20 | US ---
EXAMINATION TYPE: US venous doppler duplex LE BI DATE OF EXAM: 08/19/2023 1:06 PM COMPARISON: NONE CLINICAL INDICATION: Female, 53 years old with history of M79.89 SPECIFIED SOFT TISSUE DISORDERS; Pat ient states left ankle swelling since April after hip reversal surgery. No redness. SIDE PERFORMED: Bilateral TECHNIQUE: The lower extremity deep venous system is examined utilizing real time linear array sonog aaliyah with graded compression, doppler sonography and color-flow sonography. VESSELS IMAGED: Common Femoral Vein Deep Femoral Vein Greater Saphenous Vein * Femoral Vein Popliteal Vein Small Saphenous Vein * Proximal Calf Veins (* superficial vessels) Right Leg: Reduction Plant Supervisor notes: Negative for DVT, prominent lymph nodes seen Left Leg: Negative for DVT IMPRESSION: 1. No evidence for DVT within the bilateral lower extremities imaged from the groin to the upper calv es. 2. Asymmetrically prominent lymph nodes noted in the right groin area. These are thickened but only b orderline in size, likely reactive/post inflammatory. Clinically correlate.
== END | disposition home or self-care (01) ==
LOC: RADUSWWP 12:40
PROVIDERS: ATTEND Family Medicine
DX: M79.89 Other specified soft tissue disorders (principal); R59.0 Localized enlarged lymph nodes; Z98.890 Other specified postprocedural states
CPT/HCPCS: 93970

== ENCOUNTER → 2023-09-07 | Outpatient (CLI) | payer OTHER ==
--- NOTE | 2023-09-07 10:59 | CT ---
EXAMINATION TYPE: CT abdomen pelvis w con CT DLP: 1151.93 mGycm-CT abdomen and pelvis, 592.2 mGycm FOR 3 minute delay, Automated exposure cont rol for dose reduction was used. DATE OF EXAM: 09/07/2023 9:48 AM COMPARISON: No comparison CT exam dated CLINICAL INDICATION:Female, 53 years old with history of M79.89 OTHER SOFT TISSUE DISORDER 59.9 ENLAR GED LYMPH NODES; TECHNIQUE: Axial CT abdomen pelvis w con;Sagittal and coronal reformats were created on a separate w orkstation. Contrast used: 100 mL of Isovue 300 , (none if empty) Oral contrast used: with Oral Contrast (none if empty) FINDINGS: LOWER CHEST: Unremarkable ABDOMEN LIVER: Unremarkable GALLBLADDER AND BILE DUCTS: Unremarkable. PANCREAS: Unremarkable. SPLEEN: Unremarkable. ADRENAL GLANDS: Unremarkable. KIDNEYS AND URETERS: No evidence of hydronephrosis or renal calculus. The ureters are unremarkable. PELVIS BLADDER: Partially obscured by dense streak metal artifact from right hip total arthroplasty REPRODUCTIVE: Partially obscured by dense streak metal artifact from right hip total arthroplasty ABDOMEN & PELVIS STOMACH AND BOWEL: Stomach and duodenum are unremarkable. No evidence of small bowel obstruction. PERITONEUM/RETROPERITONEUM: No evidence of pneumoperitoneum or free fluid. VASCULATURE: No evidence of aortic aneurysm. MUSCULOSKELETAL: No acute osseous abnormalities LYMPH NODES: No gross evidence for lymphadenopathy. SOFT TISSUE/ABDOMINAL WALL: Unremarkable IMPRESSION: 1. No lymphadenopathy detected.
== END | disposition home or self-care (01) ==
LOC: RADCTMAIN 07:51
PROVIDERS: ATTEND Family Medicine
DX: M79.89 Other specified soft tissue disorders (principal); R59.9 Enlarged lymph nodes, unspecified
CPT/HCPCS: 74177; Q9967

== ENCOUNTER → 2024-06-08 | Outpatient (CLI) | payer OTHER ==
[2024-06-08 09:07] VITALS: BP 136/85; RESP 17; TEMP 97.8
--- NOTE | 2024-06-08 14:11 | P.HPOB ---
History of Present Illness H&P Date: 06/08/24 Chief Complaint: The patient is here for her routine gynecologic exam and ma mmogram. This is a 54-year-old -0-1-0 with an LMP of 2019. The patient is without gynecologic complaints and denies any postmenopausal bleeding. Review of Systems The patient has lost 29 pounds over the last year. She has been trying to lose weight. She denies respiratory, cardiac, or G.I. problems. Past Medical History Past Medical History: Osteoarthritis (OA) Additional Past Medical History / Comment(s): Pre-Diabetes. She has had hip and knee problems and has had replacement surgery for these. 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 History of Any Multi-Drug Resistant Organisms: None Reported Past Surgical History: Orthopedic Surgery Additional Past Surgical History / Comment(s): R HIP replacement 2020, R KNEE replacement 2021. Right knee revision 2022. Unilateral salpingectomy for ectopic . Colonoscopy 2020(next after 10 years) Past Anesthesia/Blood Transfusion Reactions: No Reported Reaction Additional Past Anesthesia/Blood Transfusion Reaction / Comment(s): no hx blood transfusion. takes awhile to wake up with anesthesia Past Psychological History: No Psychological Hx Reported Smoking Status: Former smoker Past Alcohol Use History: Rare (3 or 4 drinks per year.) Additional Past Alcohol Use History / Comment(s): Quit smoking in July 2020. Past Drug Use History: None Reported Additional Drug Use History / Comment(s): Rarely has used edible marijuana. Additional History: She has been with her boyfriend since 2012 and lives with him. She is . 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 - Past Family History Mother Family Medical History: No Reported History Father Family Medical History: Diabetes Mellitus, Hypertension Additional Family Medical History / Comment(s): Paternal aunt had breast cancer. Medications and Allergies Home Medications Medication Instructions Recorded Confirmed Type Vit B(Unk) 1 tab PO DAILY 03/05/23 06/08/24 History Vit D (Unk) 1 tab PO DAILY 03/05/23 06/08/24 History Multivitamin [Multivitamins Adult 1 tab PO DAILY 06/08/24 06/08/24 History Gummies] Allergies Allergy/AdvReac Type Severity Reaction Status Date / Time Penicillins AdvReac Mild headaches Verified 06/08/24 09:04 Exam Vital Signs Temp Resp BP Pulse Ox 06/08/24 09:05 97.8 F 17 136/85 99 Intake and Output 06/07/24 06/08/24 06/08/24 22:59 06:59 14:59 Other: Weight 95.708 kg Height 5 feet 1 inch, weight 211 pounds, BMI 38.6. This is a well-developed well-nourished white female who is alert and oriented times 3 in no acute distress. HEENT: Within normal limits. NECK: Supple without mass or thyromegaly. CHEST AND LUNGS: Clear to auscultation. HEART: Regular rate and rhythm. BREASTS: Are without mass or discharge. AXILLARY EXAM: Negative for adenopathy. BACK: Negative for CVA tenderness. ABDOMEN: Soft, nontender, without palpable masses. PELVIC EXAM: Normal external genitalia with mild atrophy. Cervix and vagina appear normal with mild atrophy. There is no unusual discharge. There is no evidence of prolapse. The uterus is midposition, nongravid size and nontender. There are no palpable adnexal masses or tenderness. RECTAL EXAM: Rectovaginal exam is negative for mass or tenderness and is negative for occult blood. EXTREMITIES: Nontender. IMPRESSION: 1. 54-year-old menopausal female with normal gynecologic exam. PLAN: 1. Pap smear was deferred since she had a negative Pap smear cotest on 05/06/2022. 2. Self breast awareness was discussed with the patient. We have also discussed symptoms associated with inflammatory breast cancer. 3. Screening mammogram was done today. 4. Osteoporosis prevention was discussed. I have stressed the importance of adequate calcium, vitamin D and regular exercise. Recommended amounts of calcium and vitamin D were also discussed. 5. She was advised to return in one year for her annual well woman exam.
--- NOTE | 2024-06-09 09:49 | MM ---
Reason for Exam: Screening (asymptomatic). Last mammogram was performed 1 year(s) and 1 month(s) ago. Patient History: Menarche at age 10. Patient has no children. Postmenopausal. Maternal grandmother had breast cancer. Paternal aunt had breast cancer. Risk Values: Yi 5 year model risk: 1.4%. NCI Lifetime model risk: 8.9%. Prior Study Comparison: 04/30/2021 Bilateral Screening Mammogram, [facility]. 05/07/2022 Bilateral MG screening mammo w CAD, [facility]. 05/11/2023 Bilateral MG 3D screening mammo w/cad, [facility]. Tissue Density: There are scattered areas of fibroglandular density. Findings: Analyzed By CAD. There is no suspicious group of microcalcifications or new suspicious mass in either breast. Overall Assessment: Negative, BI-RAD 1 Management: Screening Mammogram of both breasts in 1 year. . Patient should continue monthly self-breast exams. A clinical breast exam by your physician is recommended on an annual basis. This exam should not preclude additional follow-up of suspicious palpable abnormalities. Note on Yi scores and lifetime risk: 1. A Yi score greater than 3% is considered moderate risk. If this is the case, consider specialist referral to assess eligibility for a risk reducing agent. 2. If overall lifetime risk for the development of breast cancer is 20% or higher, the patient may qualify for future screening with alternating mammogram and breast MRI. [facility], , 06/09/2024 9:46 AM. Electronically signed and approved by: Luis Pan M.D. Radiologis
== END | disposition home or self-care (01) ==
LOC: RADMAMWWP 08:32
PROVIDERS: ATTEND Obstetrics & Gynecology
DX: Z12.31 Encounter for screening mammogram for malignant neoplasm of breast (principal); R92.323 Mammographic fibroglandular density, bilateral breasts; M19.90 Unspecified osteoarthritis, unspecified site; Z78.0 Asymptomatic menopausal state; Z80.3 Family history of malignant neoplasm of breast; Z83.3 Family history of diabetes mellitus; Z87.59 Personal history of other complications of pregnancy, childbirth and the puerperium; Z87.891 Personal history of nicotine dependence; Z88.0 Allergy status to penicillin; Z96.641 Presence of right artificial hip joint; Z96.651 Presence of right artificial knee joint
CPT/HCPCS: 77067

== ENCOUNTER 2025-01-10 01:33 | Emergency (ER) | payer OTHER ==
--- NOTE | 2025-01-10 01:48 | ED ---
Lower Extremity Injury HPI - General Chief Complaint: Extremity Injury, Lower Stated Complaint: Gluteal pain Time Seen by Provider: 01/10/25 01:35 Source: patient Mode of arrival: ambulatory - History of Present Illness Initial Comments: 55-year-old female with osteoarthritis, history of right hip replacement and right knee replacement here for right gluteal pain. Patient reported that since Thursday, she has been having pain in the right gluteal area that has been stabbing nonradiating that is worse with weightbearing and walking. She denied recent fall, recent trauma, saddle anesthesia, changes in sensation of the affected limb, focal weakness, vision changes, speech changes, back pain, headaches, nausea, vomiting. She had her back manipulated by the chiropractor on Thursday. - Related Data Home Medications Medication Instructions Recorded Confirmed Vit B(Unk) 1 tab PO DAILY 03/05/23 06/08/24 Vit D (Unk) 1 tab PO DAILY 03/05/23 06/08/24 Multivitamin [Multivitamins Adult 1 tab PO DAILY 06/08/24 06/08/24 Gummies] Previous Rx's Medication Instructions Recorded Ibuprofen [Motrin] 800 mg PO Q8H #12 tab 01/10/25 Allergies Allergy/AdvReac Type Severity Reaction Status Date / Time Penicillins AdvReac Mild headaches Verified 06/08/24 09:04 Review of Systems ROS Statement: Those systems with pertinent positive or pertinent negative responses have been documented in the HPI. ROS Other: All systems not noted in ROS Statement are negative. Past Medical History Past Medical History: Osteoarthritis (OA) Additional Past Medical History / Comment(s): Pre-Diabetes. She has had hip and knee problems and has had replacement surgery for these. 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 History of Any Multi-Drug Resistant Organisms: None Reported Past Surgical History: Orthopedic Surgery Additional Past Surgical History / Comment(s): R HIP replacement 2020, R KNEE replacement 2021. Right knee revision 2022. Unilateral salpingectomy for ectopic . Colonoscopy 2020(next after 10 years) Past Anesthesia/Blood Transfusion Reactions: No Reported Reaction Additional Past Anesthesia/Blood Transfusion Reaction / Comment(s): no hx blood transfusion. takes awhile to wake up with anesthesia Past Psychological History: No Psychological Hx Reported Smoking Status: Former smoker Past Alcohol Use History: Rare Past Drug Use History: None Reported - Past Family History Mother Family Medical History: No Reported History Father Family Medical History: Diabetes Mellitus, Hypertension Additional Family Medical History / Comment(s): Paternal aunt had breast cancer. General Exam - General Exam Comments Initial Comments: Physical examination: Vital signs reviewed General: non toxic, no distress, appears at stated age Head: atraumatic, normocephalic, symmetric Mouth: no lip lesion, mucus membranes moist Cardiovascular: S1S2 reg, no murmur Lungs: CTA bilateral, no rhonchi, no rales, no accessory muscle use Abdominal: soft, nondistended, nontender to palpation, no guarding Ext: muscle strength 5 out of 5 in all 4 extremities grossly, no gross muscle atrophy, no contractures, positive dorsalis pedis pulse bilateral, no edema, tenderness to the right gluteal area, right gluteal pain elicited with leg flexion, negative straight leg test Neuro: no gross focal neuro deficits Psych: Alert and oriented x3, appropriate affect and mood Course Vital Signs 01/10/25 01/10/25 01/10/25 01:43 02:51 04:10 Temperature 98.1 F Pulse Rate 79 71 61 Respiratory 18 18 17 Rate Blood Pressure 137/84 131/81 138/64 O2 Sat by Pulse 97 100 99 Oximetry 01/10/25 05:30 Temperature Pulse Rate 63 Respiratory 16 Rate Blood Pressure 139/82 O2 Sat by Pulse 100 Oximetry Medical Decision Making - Medical Decision Making Was pt. sent in by a medical professional or institution ([facility], HOUSE CLEANER, urgent care, hospital, or [place] health care facility...) When possible be specific @ -No Did you speak to anyone other than the patient for history (EMS, parent, family, police, friend...)? What history was obtained from this source @ -No Did you review nursing and triage notes (agree or disagree)? Why? @ -I reviewed and agree with nursing and triage notes Were old charts reviewed (outside hosp., previous admission, EMS record, old EKG, old radiological studies, urgent care reports/EKG's, [place] health care facility records)? Report findings @ -No old charts were reviewed Differential Diagnosis? @ -Differential Musculoskeletal Muscular strain, contusion, ligament sprain, fracture, arthritis, septic arthritis, bursitis, cellulitis, muscle spasm, nerve compression, DVT, arterial occlusion, herpes zoster, electrolyte abnormality, tumor.... This is not meant to be in all inclusive list EKG interpreted by me (3pts min.). @ -Not done X-rays interpreted by me (1pt min.). @ -None done CT interpreted by me (1pt min.). @ -None done U/S interpreted by me (1pt. min.). @ -None done What testing was considered but not performed or refused? (CT, X-rays, U/S, labs)? Why? @ -None What meds were considered but not given or refused? Why? @ -None Did you discuss the management of the patient with other professionals (professionals i.e. DrDiana, PA, HOUSE CLEANER, lab, RT, psych nurse, social work nurse, mattress packer, teacher, global safety officer, ed case manager)? Give summary @ -Dr. Cho, supervising physician Was smoking cessation discussed for >3mins.? @ -No Was critical care preformed (if so, how long)? @ -No Were there social determinants of health that impacted care today? How? (Homelessness, low income, unemployed, alcoholism, drug addiction, transportation, low edu. Level, literacy, decrease access to med. care, long term, r ehab)? @ -No Was there de-escalation of care discussed even if they declined (Discuss DNR or withdrawal of care, Hospice)? DNR status @ -No What co-morbidities impacted this encounter? (DM, HTN, Smoking, COPD, CAD, Cancer, CVA, ARF, Chemo, Hep., AIDS, mental health diagnosis, sleep apnea, morbid obesity)? @ -None Was patient admitted / discharged? Hospital course, mention meds given and route, prescriptions, significant lab abnormalities, going to OR and other pertinent info. @ -Discharge. Ordered orphenadrine IM given, however pain persisted and lumbar x-ray was ordered. Noted to have spondylolisthesis but no fractures noted. Trial of morphine IM and Solu-Medrol IM was given. Patient's symptoms improved and no new complications occurred. She is discharged on Motrin 800 for 4 days and advised to follow-up with PCP for further management Undiagnosed new problem with uncertain prognosis? @ -No Drug Therapy requiring intensive monitoring for toxicity (Heparin, Nitro, Insulin, Cardizem)? @ -No Were any procedures done? @ -No Diagnosis/symptom? @ -[default] Acute, or Chronic, or Acute on Chronic? @ -Acute Uncomplicated (without systemic symptoms) or Complicated (systemic symptoms)? @ -[default] Side effects of treatment? @ -No Exacerbation, Progression, or Severe Exacerbation? @ -No Poses a threat to life or bodily function? How? (Chest pain, [place], [place], pneumonia, PE, COPD, DKA, ARF, appy, cholecystitis, CVA, Diverticulitis, Homicidal, Suicidal, threat to staff... and all critical care pts) @ -No Disposition Clinical Impression: Right lumbar pain Disposition: HOME SELF-CARE Condition: Good Instructions (If sedation given, give patient instructions): Spondylolisthesis (ED) Prescriptions: Ibuprofen [Motrin] 800 mg PO Q8H #12 tab Is patient prescribed a controlled substance at d/c from ED?: No Referrals: Rafael Madison MD [Primary Care Provider] - 1-2 days Time of Disposition: 06:25
[2025-01-10] MEDS: ORPHENADRINE 30 MG/ML 2 ML VIAL IM STA (02:11)
[2025-01-10] MEDS: KETOROLAC 15 MG/ML 1 ML VIAL IM STA (02:47)
--- NOTE | 2025-01-10 04:54 | XR ---
EXAM: XR Lumbosacral Spine, 2 or 3 Views CLINICAL HISTORY: ITS.REASON XR Reason: Right lumbar pain; hx of back manipulation TECHNIQUE: Frontal and lateral views of the lumbar spine and sacrum. COMPARISON: No relevant prior studies available. FINDINGS: Vertebrae: No radiographically evident fracture. Grade 1 anterolisthesis at L4-5. Degenerative disc disease and facet arthropathy throughout the lumbar spine. IMPRESSION: 1. No radiographically evident acute abnormality. 2. Degenerative spondylosis.
[2025-01-10] MEDS: methylPREDNISolone SOD SUCCI 125 MG/2 ML VIAL IM ONE (05:29)
[2025-01-10] MEDS: MORPHINE SULFATE 4 MG/ML SYRINGE IM STA (05:32)
[2025-01-10] MEDS: MORPHINE SULFATE 4 MG/ML SYRINGE IVP STA (05:38)
[2025-01-10 06:46] VITALS: BP 153/83; PULSE 68; RESP 17; TEMP 98.4
== END 2025-01-10 06:40 | disposition home or self-care (01) ==
LOC: EC 01:33
DX: M47.817 Spondylosis without myelopathy or radiculopathy, lumbosacral region (principal); M47.816 Spondylosis without myelopathy or radiculopathy, lumbar region; Z87.891 Personal history of nicotine dependence; Z88.0 Allergy status to penicillin
CPT/HCPCS: 72100; 99284; 96372; J2270; J2360; J1885; J2919